=== PATIENT | male | born 1960 | race Caucasian/White ===

== ENCOUNTER → 2016-08-06 | Day surgery (SDC) | payer BC ==
[~2016-08-06] VITALS: Ht 182.9 cm; Wt 85.3 kg
[~2016-08-06] MED LIST: BUPIVACAINE/EPIN 0.25% 30 ML VIAL As Ordered ONE; BUPIVACAINE/EPIN 0.25% 30 ML VIAL XX ONE; GLYCOPYRROLATE INJ 0.2 MG/ML 2 ML VIAL As Ordered ONE; KETOROLAC 60 MG/2 ML VIAL (J1885) As Ordered ONE; LABETALOL HCL 100 MG/20 ML VIAL As Ordered ONE; LIDOCAINE 2% INJ 100 MG/5 ML SDV (FOR ANES.) As Ordered ONE; LR 1,000 ML IV SCH; MEPERIDINE INJ 25 MG/ML VIAL (J2175) As Ordered ONE; MEPERIDINE INJ 25 MG/ML VIAL (J2175) IV PRN; MIDAZOLAM INJ 2 MG/2 ML VIAL (J2250) As Ordered ONE; NEOSTIGMINE 1MG/ML 5 ML SYRINGE (J2710) As Ordered ONE; NORCO, ANEXSIA 5/325MG TABLET (HYDROcodone/ACETAMINOPHEN) PO PRN; ONDANSETRON 4MG/2ML VIAL (J2405) As Ordered ONE; ONDANSETRON 4MG/2ML VIAL (J2405) IV PRN; PERCOCET 5MG/325MG TAB PO PRN; PROPOFOL 200 MG/20 ML VIAL As Ordered ONE; ROCURONIUM BROMIDE 50 MG/5 ML VIAL As Ordered ONE; SUGAMMADEX SODIUM 500 MG/5 ML VIAL (BRIDION) As Ordered ONE; dexameTHASONE 4 MG/ML 1ML VIAL (J1100) As Ordered ONE; fentaNYL 100 MCG/2 ML INJECTION (J3010) As Ordered ONE; fentaNYL 100 MCG/2 ML INJECTION (J3010) IV PRN
[2016-08-06] MEDS: LABETALOL HCL 100 MG/20 ML VIAL IV PRN ×2 (09:58→10:17)
[2016-08-06 10:17] VITALS: BP 170/91
[2016-08-06 11:30] VITALS: BP 156/80
--- NOTE | 2016-08-06 14:09 | RO ---
DATE OF PROCEDURE: 08/06/2016 PREOPERATIVE DIAGNOSIS: Left inguinal hernia. POSTOPERATIVE DIAGNOSIS: Bilateral inguinal hernia. PROCEDURE: Laparoscopic bilateral inguinal hernia repair. SURGEON: Dr. Jonah Aponte CHANNEL OPENER OUTSOLES: Dr. Rhodes ANESTHESIA: General: ESTIMATED BLOOD LOSS: 15. COMPLICATIONS: None. INDICATIONS FOR PROCEDURE: The patient is a 55-year-old male with a left groin bulge and pain consistent with a left inguinal hernia and also a possible small right on exam. Recommendation was to proceed with laparoscopic left and possible bilateral inguinal hernia repair. The risks and benefits of the procedure, not limited to, but including bleeding, infection, hernia formation, damage to surrounding structures, need for further surgery and hernia recurrence were discussed in detail with the patient. Informed consent was obtained and the procedure was planned. PROCEDURE: The patient was brought back to operating room three after sufficient sedation and the abdomen was sterilely prepped and draped. Next, a time out was done to confirm proper patient and proper procedure. Next, a 2 cm incision was made at the umbilicus. Incision was carried down to the level of the fascia. The fascia was opened just to the right of midline. The preperitoneal space was entered and a balloon dissector was placed. The preperitoneal space was dissected with the balloon. The balloon was then removed and replaced with a 10 mm balloon port. The preperitoneal space was insufflated with 15 mmHg. Two 5 mm incisions were made in the midline in between the umbilicus and pubic symphysis and two 5 mm balloon ports were placed. Next, using a combination of blunt dissection and sharp dissection, the left inguinal canal was carefully identified. The anatomy was abnormal so this was very difficult; however, eventually it was identified. The hernia sac was then able to be dissected free from the cord structures both posteriorly and laterally. Once this was completed, the same process was done on the right side where there was a very much smaller hernia there. Once these were reduced, Bard 3DMax large meshes were placed, first on the left side. The mesh was placed inside the preperitoneal space, unrolled laterally, and tacked to the midline pubic symphysis using a ProTacker. The same process was done on the right. Once both meshes were held in place, the meshes were held down flat while the preperitoneal insufflation was released. The ports were then removed. The fascia at the umbilical port site was closed with an #0 Vicryl mgvaln-ca-snnlk suture. The abdomen was then cleaned and dried. Skin incisions were closed with #4-0 Vicryl subcuticular sutures. Steri-Strips, 4x4 and tape were applied thus ending the procedure.
== END | disposition home or self-care (01) ==
LOC: M SDC 05:50
PROVIDERS: ATTEND Surgery
DX: K40.20 Bilateral inguinal hernia, without obstruction or gangrene, not specified as recurrent (principal)
CPT/HCPCS: 49650; C1781; J0690; J1100; J1885; J2175; J2250; J2405; J3010

== ENCOUNTER → 2016-10-17 | Outpatient (CLI) | payer BC ==
[~2016-10-17] MED LIST changes: -BUPIVACAINE/EPIN 0.25% 30 ML VIAL As Ordered ONE; -BUPIVACAINE/EPIN 0.25% 30 ML VIAL XX ONE; +GASTROGRAFIN SOLUTION 30ML (Q9963) As Ordered ONE; -GLYCOPYRROLATE INJ 0.2 MG/ML 2 ML VIAL As Ordered ONE; +ISOVUE-370 76% 100ML VIAL (Q9967) As Ordered ONE; -KETOROLAC 60 MG/2 ML VIAL (J1885) As Ordered ONE; -LABETALOL HCL 100 MG/20 ML VIAL As Ordered ONE; -LIDOCAINE 2% INJ 100 MG/5 ML SDV (FOR ANES.) As Ordered ONE; -LR 1,000 ML IV SCH; -MEPERIDINE INJ 25 MG/ML VIAL (J2175) As Ordered ONE; -MEPERIDINE INJ 25 MG/ML VIAL (J2175) IV PRN; -MIDAZOLAM INJ 2 MG/2 ML VIAL (J2250) As Ordered ONE; -NEOSTIGMINE 1MG/ML 5 ML SYRINGE (J2710) As Ordered ONE; -NORCO, ANEXSIA 5/325MG TABLET (HYDROcodone/ACETAMINOPHEN) PO PRN; -ONDANSETRON 4MG/2ML VIAL (J2405) As Ordered ONE; -ONDANSETRON 4MG/2ML VIAL (J2405) IV PRN; -PERCOCET 5MG/325MG TAB PO PRN; -PROPOFOL 200 MG/20 ML VIAL As Ordered ONE; -ROCURONIUM BROMIDE 50 MG/5 ML VIAL As Ordered ONE; -SUGAMMADEX SODIUM 500 MG/5 ML VIAL (BRIDION) As Ordered ONE; -dexameTHASONE 4 MG/ML 1ML VIAL (J1100) As Ordered ONE; -fentaNYL 100 MCG/2 ML INJECTION (J3010) As Ordered ONE; -fentaNYL 100 MCG/2 ML INJECTION (J3010) IV PRN
--- NOTE | 2016-10-18 07:24 | REP ---
CT ABDOMEN AND PELVIS WITHOUT AND WITH CONTRAST: 10/17/2016. Clinical history: Bilateral inguinal hernia, status post repair with persistent/recurrent pain. Evaluate for hernia recurrence. Technique: Oral Gastrografin mixture 10 ml in 290 ml of flavored water per our bowel contrast protocol given for two doses. Scanning through the abdomen performed followed by bolus of 100 ml Isovue 370 and scanning through the abdomen and pelvis with coronal and sagittal reconstructions. Delayed images through the liver were obtained. Findings: CT abdomen: Lung bases are clear. Heart size not grossly enlarged. Left atrium borderline. There is no pericardial thickening or effusion and no hiatal hernia. I see no hepatosplenomegaly, focal hepatic or splenic lesion nor intrahepatic biliary dilatation. Gallbladder with a few small dependent stones. Some sludge. Pancreas unremarkable. Adrenal glands are normal. The kidneys show function without obstruction. There are some parapelvic cysts in the lower pole on the left. No hydronephrosis, hydroureter or ureteral stone on either side. The aorta is without aneurysm. There is no periaortic or other retroperitoneal lymphadenopathy. Small bowel loops and colon in the abdomen proper were all unremarkable. There is a retrocecal appendix which is unremarkable. I see no ventral hernia in the abdomen or umbilical hernia. Lung window review of all CT slices abdomen pelvis shows no sign of perforation or free air. Bone windows show lumbar and lower thoracic spine with some minor degenerative changes, but no spondylolysis or spondylolisthesis. Visualized ribs intact. CT pelvis: The bony hips, pelvis and SI joints show some minor degenerative changes without destructive lesion or fractures. Bladder shows no wall thickening, mass or stone. There are postoperative changes in the deep pelvis from prior hernia repair. There is omental fat distending the left inguinal canal, but not the right. Small hydroceles are suggested in the upper aspect of the scrotum surrounding the upper poles of the testes. No bowel herniation recurs. I do not see any definite tethering or obstruction of the bowel with stool and gas scattered throughout the distal left colon, sigmoid and rectum, but no colitis or diverticulitis. No midline ventral hernia. Impression: 1. Status post hernia surgery with evidence of distension of the left inguinal canal with omental fat but no bowel hernia recurrence, obstruction or tethering of bowel, abnormal fluid collections or masses. 2. No diverticulitis, colitis, stricture or mass. 3. A few small dependent calcifications in the gallbladder with some sludge. No other acute finding. Minor degenerative changes. Signed by Tio Smart MD 10/18/2016 10:33 A
== END ==
LOC: M RAD 15:28
PROVIDERS: ATTEND Surgery
DX: K40.20 Bilateral inguinal hernia, without obstruction or gangrene, not specified as recurrent (principal)

== ENCOUNTER → 2017-03-09 | Outpatient (REF) | payer BC ==
[~2017-03-09] MED LIST changes: -GASTROGRAFIN SOLUTION 30ML (Q9963) As Ordered ONE; +HYDR-3363 PO; -ISOVUE-370 76% 100ML VIAL (Q9967) As Ordered ONE; +SENE8.6T PO; +VENL150C43 PO
[2017-03-09 12:23] LABS: TOTAL PROTEIN 6.9 GM/DL (6.4-8.2)
[2017-03-10 12:00] LABS: ALBUMIN 4.37 GM/DL (3.29-5.55); ALBUMIN % 63.4 % (55.8-66.1); GAMMA GLOBULIN % 11.8 % (11.1-18.8)
== END ==
LOC: M LABDRAW1 08:45
PROVIDERS: ATTEND Internal Medicine
DX: R80.9 Proteinuria, unspecified (principal); F41.9 Anxiety disorder, unspecified

== ENCOUNTER → 2017-03-10 | Outpatient (REF) | payer BC | LOC: M LAB REF 12:48 | PROVIDERS: ATTEND Internal Medicine | DX: R80.9 Proteinuria, unspecified (principal); F41.9 Anxiety disorder, unspecified ==

== ENCOUNTER 2017-04-24 11:53 | Outpatient (CLI) | payer BC ==
[~2017-04-24] VITALS: Ht 182.9 cm; Wt 86.2 kg
[2017-04-24] MEDS ORDERED: NS 1,000 ML IV ONE (12:15)
[2017-04-24] MEDS ORDERED: PROPOFOL 200 MG/20 ML VIAL As Ordered ONE (13:37)
[2017-04-24] MEDS ORDERED: LIDOCAINE 2% INJ 100 MG/5 ML SDV (FOR ANES.) As Ordered ONE (13:37)
--- NOTE | 2017-04-24 13:56 | ROOR ---
Patient Name: Kvng Farris Procedure Date: 04/24/2017 1:32 PM Date of : 1960 Age: 56 Room: [facility] Gender: Male Note Status: Finalized Procedure: Colonoscopy Indications: Screening for colorectal malignant neoplasm Providers: Gera MEJIA MD Referring MD: ARSENIO MENON MD Requesting Provider: Medicines: Monitored Anesthesia Care Complications: No immediate complications. Procedure: Pre-Anesthesia Assessment: - The heart rate, respiratory rate, oxygen saturations, blood pressure, adequacy of pulmonary ventilation, and response to care were monitored throughout the procedure. The Colonoscope was introduced through the anus and advanced to the cecum, identified by appendiceal orifice and ileocecal valve. The colonoscopy was performed without difficulty. The patient tolerated the procedure well. The quality of the bowel preparation was good. Findings: The perianal and digital rectal examinations were normal. (EXAM: Complete, PREP:Adequate) Small Internal Hemorrhoids. The entire examined colon appeared normal on direct and retroflexion views. Impression: - (EXAM: Complete, PREP:Adequate) - Small Internal Hemorrhoids. - The entire colon is normal on direct and retroflexion views. - No specimens collected. Recommendation: - Repeat colonoscopy in 10 years for screening purposes. Gera Mejia MD Gera MEJIA MD 04/24/2017 1:55:47 PM This report has been signed electronically. Number of Addenda: 0 Note Initiated On: 04/24/2017 1:32 PM Estimated Blood Loss: Estimated blood loss: none.
[2017-04-24 14:34] VITALS: BP 131/91
== END 2017-04-24 14:36 | disposition home or self-care (01) ==
LOC: M OPP 11:53
PROVIDERS: ATTEND Internal Medicine Gastroenterology
DX: Z12.11 Encounter for screening for malignant neoplasm of colon (principal); K64.8 Other hemorrhoids; F41.9 Anxiety disorder, unspecified; G47.8 Other sleep disorders; Z79.899 Other long term (current) drug therapy; Z80.51 Family history of malignant neoplasm of kidney

== ENCOUNTER → 2018-10-07 | Outpatient (REF) | payer BC ==
[2018-10-07 14:59] LABS: TOTAL PROTEIN,RANDOM URINE 17.5 MG/DL (0.0-12.0)
[2018-10-07 15:10] LABS: AMORPHOUS SEDIMENT SMALL (NEGATIVE); BACTERIA, URINE AUTO NEGATIVE (NEGATIVE); MUCUS, URINE MODERATE (NEGATIVE); RBC, URINE AUTO 0 /HPF (0-3); SQUAMOUS EPITHELIAL CELL UR AU 0 /HPF (0-6); WBC, URINE AUTO 1 /HPF (0-3)
== END ==
LOC: M LAB REF 13:34
PROVIDERS: ATTEND Internal Medicine Nephrology
DX: R80.9 Proteinuria, unspecified (principal); N18.2 Chronic kidney disease, stage 2 (mild)

== ENCOUNTER → 2018-10-12 | Outpatient (CLI) | payer BC ==
--- NOTE | 2018-10-12 11:26 | REP ---
RENAL AND BLADDER ULTRASOUND: Real-time sonographic evaluation of the kidneys performed. The kidneys are normal in size and echotexture, right kidney measuring 11.7 x 6.8 x 4.9 cm and left kidney 11.7 x 5.3 x 5.7 cm. There is no hydronephrosis bilaterally. There is a cyst in the lower pole of the right kidney 1.5 cm in diameter. There appears to be a small extrarenal pelvis of the right kidney. There is focal pelvocaliectasis in the lower pole of the left kidney. Urinary bladder measures 10.2 x 7.0 x 8.7 cm for a total volume of 406 mL. No mass or calculus is seen. There are bilateral ureteral jets in the urinary bladder with Doppler color evaluation. After voiding, post void residual is 68 mL. This is 17% of the original volume. IMPRESSION: No overt hydronephrosis. Right renal cyst. Mild pelvocaliectasis lower pole left kidney. Postvoid residual in the urinary bladder is 17%. Electronically Signed by Jonah Hurtado MD 10/13/2018 10:07 A
== END ==
LOC: M RAD 08:24
PROVIDERS: ATTEND Internal Medicine Nephrology
DX: R35.1 Nocturia (principal); R80.9 Proteinuria, unspecified; N28.1 Cyst of kidney, acquired

== ENCOUNTER 2019-05-12 07:33 | Day surgery (SDC) | payer BC ==
[~2019-05-12] VITALS: Ht 182.9 cm; Wt 93.9 kg
[~2019-05-12 07:33] MED LIST changes: +ATOR1TAB21 PO; +LOSA25TA14 PO; +LR 1,000 ML IV ONE; -SENE8.6T PO; +SENN1TAB38 PO; +ceFAZolin SOD 2 GM in IV 1 EA IV ONE
[2019-05-12] MEDS ORDERED: BUPIVACAINE/EPIN 0.25% 30 ML VIAL As Ordered ONE (10:11)
[2019-05-12] MEDS ORDERED: SUGAMMADEX SODIUM 500 MG/5 ML VIAL (BRIDION) As Ordered ONE (10:47)
[2019-05-12] MEDS ORDERED: ROCURONIUM BROMIDE 50 MG/5 ML VIAL As Ordered ONE ×2 (10:47→12:10)
[2019-05-12] MEDS ORDERED: ONDANSETRON 4MG/2ML VIAL (J2405) As Ordered ONE (10:47)
[2019-05-12] MEDS ORDERED: PROPOFOL 200 MG/20 ML VIAL As Ordered ONE (10:47)
[2019-05-12] MEDS ORDERED: KETOROLAC 60 MG/2 ML VIAL (J1885) As Ordered ONE (10:47)
[2019-05-12] MEDS ORDERED: dexameTHASONE 4 MG/ML 1ML VIAL (J1100) As Ordered ONE (10:47)
[2019-05-12] MEDS ORDERED: ACETAMINOPHEN 1000MG 100ML IV BTL (OFIRMEV) (J0131 PER 10MG) As Ordered ONE (10:47)
[2019-05-12] MEDS ORDERED: MIDAZOLAM INJ 2 MG/2 ML VIAL (J2250) As Ordered ONE (10:47)
[2019-05-12] MEDS ORDERED: LIDOCAINE 2% INJ 100 MG/5 ML SDV (FOR ANES.) As Ordered ONE (10:47)
[2019-05-12] MEDS ORDERED: fentaNYL 250 MCG/5 ML INJECTION (J3010) As Ordered ONE (10:47)
[2019-05-12] MEDS ORDERED: METOCLOPRAMIDE INJ 10MG/2ML VIAL (J2765) As Ordered ONE (10:47)
[2019-05-12] MEDS ORDERED: LR 1,000 ML IV SCH (13:45)
[2019-05-12] MEDS ORDERED: fentaNYL 100 MCG/2 ML INJECTION (J3010) IV PRN (13:45)
[2019-05-12] MEDS ORDERED: ONDANSETRON 4MG/2ML VIAL (J2405) IV PRN (13:45)
[2019-05-12] MEDS ORDERED: HYDROMORPHONE HCL 0.5 MG/ 0.5 ML SYRINGE (J1170 PER 1) IV PRN (13:45)
[2019-05-12] MEDS ORDERED: PERCOCET 5MG/325MG TAB PO PRN (13:45)
[2019-05-12] MEDS ORDERED: NORCO, ANEXSIA 5/325MG TABLET (HYDROcodone/ACETAMINOPHEN) PO PRN (14:46)
--- NOTE | 2019-05-12 15:07 | REP ---
HISTORY: Assess for foreign body. FINDINGS: KUB shows the intestinal gas pattern to be nonspecific. The organ silhouettes insofar as delineated are unremarkable. There is no evidence of free intraperitoneal air. In the pelvis, there are four coil shaped radiodensities, the etiology of which need to be correlated clinically. There is no linear or curvilinear metallic radiodensity that would be considered consistent with any form of needle. IMPRESSION: Nonspecific. Electronically Signed by Matthew Ching DO 05/12/2019 04:57 P
[2019-05-12 15:19] VITALS: BP 135/81
--- NOTE | 2019-05-12 22:31 | RO ---
DATE OF PROCEDURE: 05/12/2019 PREOPERATIVE DIAGNOSIS: Recurrent incarcerated left inguinal hernia and umbilical hernia. POSTOPERATIVE DIAGNOSIS: Recurrent incarcerated left inguinal hernia and umbilical hernia. PROCEDURE: Robotic repair of incarcerated recurrent left inguinal hernia and umbilical hernia. SURGEON: Dr. Jonah Aponte GRADES 1 THROUGH 6 TEACHER: Jessica Licea ANESTHESIA: General. ESTIMATED BLOOD LOSS: 5 mL. COMPLICATIONS: None. INDICATIONS FOR PROCEDURE: The patient is a 58-year-old male who presents with a large bulge in the left groin, as well some pain in his umbilicus. Recommendation was to proceed with robotic repair of his recurrent left incarcerated inguinal hernia as well as the umbilical hernia. Risks and benefits of procedure not limited to but including bleeding, infection, hernia recurrence, hernia formation, damage to surrounding structures and need for further surgery were discussed in detail with the patient. Informed consent was obtained and procedure was planned. DESCRIPTION OF PROCEDURE: The patient was brought back to operating room seven and after sufficient sedation, the abdomen was sterilely prepped and draped. Next, a time-out was done to confirm proper patient, proper procedure. Following that, 8 mm incision made left upper quadrant, Veress needle inserted and the abdomen was insufflated to 15 mmHg. Next, the Veress needle removed and an 8 mm robotic port was used to gain access to the abdomen. Once the abdomen was entered, two more 8 mm ports were placed, one subxiphoid and one in the right upper quadrant. Starting in the left groin, the entire sigmoid colon was down into the left groin. This was carefully reduced using combination of retraction intra-abdominally as well as pressure on the outside of the abdomen. Once it was completely reduced and a curved incision was made in the preperitoneal space, the hernia sac was dissected free from the cord structures using a combination of blunt and sharp dissection. His previous mesh was identified; it had all retracted medially. Once everything was reduced, Bard 3DMax Light medium mesh was placed in the preperitoneal space, sutured medially to the anterior abdominal wall as well as to the old mesh and then placed laterally. Next, the peritoneum was closed with a #2-0 V-Loc suture encompassing some of the large cord lipoma within it to help keep it from retracting back inside of the hernia sac. Once this was all completed, next at the umbilicus, a horizontal incision about 5 cm in length was made. Preperitoneal space was dissected free using a combination of blunt and sharp dissection. Once that was completed, the hernia defect was closed with an #0 Stratafix suture. Once that was completed, a 3 x 3 square of ProGrip suture was cut and placed inside of the preperitoneal pocket. The peritoneum was then closed with a #2-0 V-Loc suture, thus ending that portion of the procedure. The ports were then removed, the abdomen was then desufflated. Skin incisions were closed with #4-0 Vicryl subcuticular sutures. The abdomen was cleaned and dried. Steri-Strips, 4x4, and tape were applied thus ending procedure.
== END 2019-05-12 15:19 | disposition home or self-care (01) ==
LOC: M SDC 07:33
PROVIDERS: ATTEND Surgery
DX: K40.31 Unilateral inguinal hernia, with obstruction, without gangrene, recurrent (principal); K42.9 Umbilical hernia without obstruction or gangrene; I10 Essential (primary) hypertension; F41.9 Anxiety disorder, unspecified; E78.00 Pure hypercholesterolemia, unspecified
CPT/HCPCS: 49651; 49652; 74018; C1781; J0131; J0690; J1100; J1885; J2250; J2405; J2765; J3010

== ENCOUNTER → 2021-06-12 | Outpatient (CLI) | payer BC ==
[~2021-06-12] MED LIST changes: +ACET-897 PO; +COLA100C5 PO; -LR 1,000 ML IV ONE; +META28.32 PO; -ceFAZolin SOD 2 GM in IV 1 EA IV ONE
--- NOTE | 2021-06-12 14:50 | REP ---
INDICATION: ABDOMINAL PAIN. COMPARISON: 05/12/2019 TECHNIQUE: Four views FINDINGS: Supine and upright views of the abdomen show the intestinal gas pattern to be nonspecific. Gas and stool is seen throughout the colon within the rectosigmoid region. The organ silhouettes insofar as delineated appear unremarkable. No abdominal calcific densities are seen within the abdomen or pelvis. There is a moderate to large amount of stool seen in the colon. The accompanying single frontal view of the chest shows no free subdiaphragmatic air, cardiomegaly, infiltrates or effusions. IMPRESSION: Nonspecific intestinal gas pattern. <Electronically signed by Matthew Ching > 06/12/21 [id number]
== END ==
LOC: M WUC 14:09
PROVIDERS: ATTEND Internal Medicine
DX: R10.9 Unspecified abdominal pain (principal)

== ENCOUNTER 2021-06-14 09:34 | Emergency (ER) | payer BC ==
[~2021-06-14] VITALS: Ht 182.9 cm; Wt 92.8 kg
[~2021-06-14 09:34] MED LIST changes: -ACET-897 PO; -COLA100C5 PO; -META28.32 PO
[2021-06-14] MEDS ORDERED: META28.32 PO (09:42)
[2021-06-14] MEDS ORDERED: COLA100C5 PO (09:42)
--- OUTSIDE RECORDS SUMMARY | 2021-06-14 09:46 | CCD | Continuity of Care Document ---
Author Author Kvng VITAL M.D. Organization Unknown Address [address] [address] Phone [phone] Problems Active Problems Provider Date Proteinuria Mike Riggs [facility] Onset: 10/31/2016 Hyperlipidemia Horacio Vital M.D. Onset: 0 Anxiety state Horacio Vital M.D. Onset: 0 Social History Type Date Description Comments Sex Unknown ETOH Use Denies alcohol use Tobacco Use Start: Unknown Patient has never smoked Recreational Drug Use Denies Drug Use Allergies and adverse reactions Description No Known Drug Allergies Medications Active Medications SIG Qnty Indications Ordering Provide r Date Omeprazole 20mg Capsules DR 1 by mouth every morning 90Horacio Byers M.D. 06/12/20 21 Losartan Potassium 25mg Tablets Take 1 Tablet By Mouth Every Day 90Horacio Danielson M.D . 09/14/2018 Atorvastatin Calcium 20mg Tablets Take 1 Tablet By Mouth AT Bedtime 90tabs Horacio Vital M. D. 03/09/2018 Venlafaxine HCL ER 150mg Caps ER 2 4HR Take 1 Capsule By Mouth Every Day Horacio Nazario M.D. 11/10/2016 Immunizations CPT Code Status Date Vaccine Lot # [id number] Given 04/12/2021 Influenza Virus Vaccine, Quadrivalent, Slit Virus, Im Use 3Y & Up [id number] Vital Signs Date Vital Result Comment 06/12/2021 1:25pm BP Systolic 124 mmHg BP Diastolic 84 mmHg Body Temperature 98.3 F Heart Rate 88 /min Respiratory Rate 18 /min Weight 205.00 lb O2 % BldC Oximetry 97 % 04/12/2021 8:28am BP Systolic 124 mmHg BP Diastolic 80 mmHg Heart Rate 72 /min Respiratory Rate 14 /min Weight 211.00 lb Results Test Acquired Date Facility Test Result H/L Range Note CMP 04/12/2021 [facility] Glu 88 mg/dL 70 - 110 1 BUN 13 mg/dL 8 - 23 Creat 1.1 mg/dL 0.7 - 1.2 BUN/Creatinine Ratio 12.1 Calc Na 139 mmol/L 136 - 145 K 4.6 mmol/L 3.5 - 5.1 CL 102.3 mmol/L 98.0 - 107.0 Co2 24.2 mmol/L 22.0 - 29.0 CA 9.3 mg/dL 8.6 - 10.2 TP 6.8 g/dL 6.6 - 8.7 Alb 4.8 g/dL 3.5 - 5.2 A/G Ratio 2.5 Calc Globulin 2.0 Calc Alp 87.6 U/L 40 - 129 Alt (SGPT) 20 U/L 0 - 41 Ast (Sgot) 18 U/L 0 - 40 Tbili 0.51 mg/dL 0.0 - 1.2 Osmolality-Calculated 276.9 Calc Anion Gap 17.1 mmol/L eGFR 85 # Calc 2 eGFR Non-Afr. Kenyan 74 # Calc 3 Lipid Panel 04/12/2021 [facility] Chol 153 mg/dL 0 - 200 Trig 116 mg/dL 35 - 200 HDL 48 mg/dL 35 - 55 LDL_C 82 Calc 75 - 129 Cho/HDL Ratio 3.2 Calc 1 CHRONIC KIDNEY DISEASE STAGI NG PER NKF: MALE GFR INTERPRETATION: 20-49 YRS: >60 mL/min Normal 50-59 YRS: >56 mL/min Normal 60-69 YRS: >49 mL/min Normal 70-79 YRS: >42 mL/min Normal 80 and above >35 mL/min Normal FEMALE GRF INTERPRETATION: 20-39 YRS: >60 mL/min Normal 40-49 YRS: >58 mL/min Normal 50-59 YRS: >51 mL/min Normal 60-69 YRS: >45 mL/min Normal 70-79 YRS: >39 mL/min Normal 80 and above >32 mL/min NormalCLASSIFICATION CHOLESTEROL FOR ADULTS CHILDREN/ADOLESCENTS* DESIRABLE: <200 MG/DL <170 MG/DL BORDER-LINE HIGH RISK: 200-239 MG/DL 170-199 MG/DL HIGH RISK: >240 MG/DL >200 MG/DL CLASS. FOR PRIMARY LDL CHOL PREVENTION: LDL CHOL-CHILD/ADOLESCENTS* DESIRABLE: <130 MG/DL <110 MG/DL BORDERLINE-HIGH RISK: 130-159 MG/DL 110-129 MG/DL HIGH RISK: >160 MG/DL >130 MG/DL *CHILDREN AND ADOLESCENTS REPRESENTS INDIVIDUALA AGED 2-19 YEARS EXCLUSIVE. 2 CKD-EPI 3 CKD-EPI Procedures Date Code Description Status 06/12/2021 37827 Office/Outpatient Established Mo d MDM 30-39 Min Completed 04/12/2021 58187 Office/Outpatient Established Mo d MDM 30-39 Min Completed Medical Devices Description No Information Available Encounters Type Date Location Provider Dx Diagnosis Office Visit 06/12/2021 1:30p [place] [facility] Horacio Vital M. D. R10.9 Unspecified abdominal pain Office Visit 04/12/2021 8:30a [place] [facility] Horacio Vital M. D. R74.01 Elevation of levels of liver transaminase levels F41.9 Anxiety disorder, unspecifie d E78.5 Hyperlipidemia, unspecified R80.9 Proteinuria, unspecified Z23 Encounter for immunization Assessments Date Code Description Provider 06/12/2021 R10.9 Unspecified abdominal pain Horacio Monte M.D. 04/12/2021 R74.01 Elevation of levels of liver tra nsaminase levels Horacio Vital M.D. 04/12/2021 F41.9 Anxiety disorder, unspecified Mi Horacio montano M.D. 04/12/2021 E78.5 Hyperlipidemia, unspecified Mitc Horacio allen M.D. 04/12/2021 R80.9 Proteinuria, unspecified Horacio Perez M.D. 04/12/2021 Z23 Encounter for immunization Horacio Monte M.D. Plan of Treatment Future Appointment(s):* 10/16/2021 8:30 am - Horacio Vital M.D. at [facility] Functional Status Description No Information Available Mental Status Description No Information Available Referrals Description No Information Available
--- OUTSIDE RECORDS SUMMARY | 2021-06-14 09:46 | CCD | Continuity of Care Document ---
Author Author Kvng VITAL M.D. Organization Unknown Address [address] [address] Phone [phone] Problems Active Problems Provider Date Proteinuria Mike Riggs [facility] Onset: 10/31/2016 Hyperlipidemia Horacio Vital M.D. Onset: 0 Anxiety state Horacio Vital M.D. Onset: 0 Social History Type Date Description Comments Sex Unknown ETOH Use Denies alcohol use Tobacco Use Start: Unknown Patient has never smoked Recreational Drug Use Denies Drug Use Allergies, Adverse Reactions, Alerts Description No Known Drug Allergies Medications Active Medications SIG Qnty Indications Ordering Provide r Date Losartan Potassium 25mg Tablets Take 1 Tablet By Mouth Every Day 90tabs Horacio Vital M.D . 09/14/2018 Atorvastatin Calcium 20mg Tablets Take 1 Tablet By Mouth AT Bedtime 90tabs Horacio Vital M. D. 03/09/2018 Venlafaxine HCL ER 150mg Caps ER 2 4HR Take 1 Capsule By Mouth Every Day 90Horacio Byers M.D. 11/10/2016 History Medications Keflex 500mg Capsules 1 by mouth three times a day 30capHoracio Vicente M.D. 10/17/19 - 04/12/2021 Immunizations CPT Code Status Date Vaccine Lot # [id number] Given 04/12/2021 Influenza Virus Vaccine, Quadrivalent, Slit Virus, Im Use 3Y & Up [id number] Vital Signs Date Vital Result Comment 04/12/2021 8:28am BP Systolic 124 mmHg BP Diastolic 80 mmHg Heart Rate 72 /min Respiratory Rate 14 /min Weight 211.00 lb 10/16/2020 1:46pm BP Systolic 128 mmHg BP Diastolic 82 mmHg Body Temperature 98.5 F Heart Rate 84 /min Respiratory Rate 16 /min Height 72 inches 6'0" Weight 219.00 lb Norris Body Weight 178 lb BMI (Body Mass Index) 29.7 kg/m2 O2 % BldC Oximetry 97 % Results Test Acquired Date Facility Test Result [...] eGFR 85 # Calc 2 eGFR Non-Afr. [place] 74 # Calc 3 Lipid Panel 04/12/2021 [...] 3 CKD-EPI Procedures Date Code Description Status 04/12/2021 27623 Office/Outpatient Established Mo d MDM 30-39 Min Completed 10/16/2020 23664 Office/Outpatient Established Lo w MDM 20-29 Min Completed Medical Devices Description No Information Available Encounters Type Date Location Provider Dx Diagnosis Office Visit 04/12/2021 8:30a [place] [facility] Horacio Vital M. D. R74.01 Elevation of levels of liver transaminase levels F41.9 Anxiety disorder, unspecifie d E78.5 Hyperlipidemia, unspecified R80.9 Proteinuria, unspecified Office Visit 10/16/2020 1:30p [facility] Horacio Vital M. D. L03.221 Cellulitis of neck Assessments Date Code Description Provider 04/12/2021 R74.01 Elevation of levels of liver tra nsaminase levels Horacio Vital M.D. 04/12/2021 F41.9 Anxiety disorder, unspecified Mi Horacio montano M.D. 04/12/2021 E78.5 Hyperlipidemia, unspecified Mitc Horacio allen M.D. 04/12/2021 R80.9 Proteinuria, unspecified KurtisHoracio abbott M.D. 10/16/2020 L03.221 Cellulitis of neck Anthony Vital M.D. Plan of Treatment Future Appointment(s):* 10/16/2021 8:30 am - Horacio Vital M.D. at [facility] Functional Status Description No Information Available Mental Status Description No Information Available Referrals Description No Information Available
--- OUTSIDE RECORDS SUMMARY | 2021-06-14 09:46 | CCD | Continuity of Care Document ---
Author Author Kvng VITAL M.D. Organization Unknown Address [address] [address] Phone [phone] Problems Active Problems Provider Date Proteinuria Mike Riggs [facility] Onset: 10/31/2016 Hyperlipidemia Horacio Vital M.D. [...] CPT Code Status Date Vaccine Lot # [id number] Given 04/12/2021 Influenza Virus Vaccine, Quadrivalent, Slit Virus, Im Use 3Y & Up [id number] Vital Signs Date Vital Result Comment 04/12/2021 8:28am BP Systolic 124 mmHg BP Diastolic 80 mmHg Heart Rate 72 /min Respiratory Rate 14 /min Weight 211.00 lb 10/16/2020 1:46pm BP Systolic 128 mmHg BP Diastolic 82 mmHg Body Temperature 98.5 F Heart Rate 84 /min Respiratory Rate 16 /min Height 72 inches 6'0" Weight 219.00 lb [place] Body Weight 178 lb BMI (Body Mass Index) 29.7 kg/m2 O2 % BldC Oximetry 97 % Results Test Acquired Date Facility Test Result H/L Range Note Lipid Panel 04/12/2021 [facility] Chol 153 mg/dL 0 - 200 1 Trig 116 mg/dL 35 - 200 HDL [...] ADOLESCENTS REPRESENTS INDIVIDUALA AGED 2-19 YEARS EXCLUSIVE. Procedures Date Code Description Status 04/12/2021 24319 Office/Outpatient Established Mo d MDM 30-39 Min Completed 10/16/2020 02417 Office/Outpatient Established Lo w MDM 20-29 Min Completed Medical Devices Description No Information Available Encounters Type Date Location Provider Dx Diagnosis Office Visit 04/12/2021 8:30a [place] [facility] Horacio Vital M. D. R74.01 Elevation of levels of liver transaminase levels F41.9 Anxiety disorder, unspecifie d E78.5 Hyperlipidemia, unspecified R80.9 Proteinuria, unspecified Office Visit 10/16/2020 1:30p [facility] Horacio Vital M. D. L03.221 Cellulitis of neck Assessments Date Code Description Provider 04/12/2021 R74.01 Elevation of levels of liver tra nsaminase levels Horacio Vital M.D. 04/12/2021 F41.9 Anxiety disorder, unspecified Mi Horacio montano M.D. 04/12/2021 E78.5 Hyperlipidemia, unspecified Mitc Horacio allen M.D. 04/12/2021 R80.9 Proteinuria, unspecified Kurtis Horacio brooks M.D. 10/16/2020 L03.221 Cellulitis of neck Anthony Vital M.D. Plan of Treatment Future Appointment(s):* 10/16/2021 8:30 am - Horacio Vital M.D. at [facility] Functional Status Description No Information Available Mental Status Description No Information Available Referrals Description No Information Available
--- OUTSIDE RECORDS SUMMARY | 2021-06-14 09:46 | CCD | Continuity of Care Document ---
Author Author Kvng VITAL M.D. Organization Unknown Address [address] [address] Phone [phone] Problems Active Problems Provider Date Proteinuria Mike Riggs [facility] Onset: 10/31/2016 Hyperlipidemia Horacio Vital M.D. [...] 1 Capsule By Mouth Every Day 90Horacio yBers M.D. 11/10/2016 History Medications Keflex 500mg Capsules 1 by mouth three times a day 30capHoracio Vicente M.D. 10/17/19 - 04/12/2021 Immunizations CPT Code Status Date Vaccine Lot # [id number] Given 04/12/2021 Influenza Virus Vaccine, Quadrivalent, Slit Virus, Im Use 3Y & Up [id number] Vital Signs Date Vital Result Comment 04/12/2021 8:28am BP Systolic 124 mmHg BP Diastolic 80 mmHg Heart Rate 72 /min Respiratory Rate 14 /min Weight 211.00 lb 10/16/2020 1:46pm BP Systolic 128 mmHg BP Diastolic 82 mmHg Body Temperature 98.5 F Heart Rate 84 /min Respiratory Rate 16 /min Height 72 inches 6'0" Weight 219.00 lb [place] Body Weight 178 lb BMI (Body Mass [...] eGFR 85 # Calc 2 eGFR Non-Afr. [place] 74 # Calc 3 Lipid Panel 04/12/2021 [...] CKD-EPI Procedures Date Code Description Status 04/12/2021 13640 Office/Outpatient Established Mo d MDM 30-39 Min Completed 10/16/2020 09204 Office/Outpatient Established Lo w MDM 20-29 Min Completed Medical Devices Description No Information Available Encounters Type Date Location Provider Dx Diagnosis Office Visit 04/12/2021 8:30a [facility] Horacio Vital M. D. R74.01 Elevation of levels of liver transaminase levels F41.9 Anxiety disorder, unspecifie d E78.5 Hyperlipidemia, unspecified R80.9 Proteinuria, unspecified Z23 Encounter for immunization Office Visit 10/16/2020 1:30p [facility] Horacio Vital M. D. L03.221 Cellulitis of neck Assessments Date Code Description Provider 04/12/2021 R74.01 Elevation of levels of liver tra nsaminase levels Horacio Vital M.D. 04/12/2021 F41.9 Anxiety disorder, unspecified [place] Horacio montano M.D. 04/12/2021 E78.5 Hyperlipidemia, unspecified [facility] Horacio allen M.D. 04/12/2021 R80.9 Proteinuria, unspecified Horacio Perez M.D. 04/12/2021 Z23 Encounter for immunization Horacio Monte M.D. 10/16/2020 L03.221 Cellulitis of neck Anthony Vital M.D. Plan of Treatment Future Appointment(s):* 10/16/2021 8:30 am - Horacio Vital M.D. at [facility] Functional Status Description No Information Available Mental Status Description No Information Available Referrals Description No Information Available
--- OUTSIDE RECORDS SUMMARY | 2021-06-14 09:47 | CCD ---
Author Author [facility] Organization [facility] Address Unknown Phone Unavailable Care Team Providers Care Manager Study Name Role Phone Ryan MENON MD Unavailable Unavailable Ryan MENON MD Unavailable Unavailable Ryan MENON MD Unavailable Unavailable Ryan MENON MD Unavailable Unavailable Ryan MENON MD Unavailable Unavailable Ryan MENON MD Unavailable Unavailable Ryan MENON MD Unavailable Unavailable Ryan MENON MD Unavailable Unavailable Ryan MENON MD Unavailable Unavailable Ryan MENON MD Unavailable Unavailable Ryan MENON MD Unavailable Unavailable Ryan MENON MD Unavailable Unavailable Ryan MENON MD Unavailable Unavailable Ryan MENON MD Unavailable Unavailable Ryan MENON MD Unavailable Unavailable Ryan MENON MD Unavailable Unavailable Ryan MENON MD Unavailable Unavailable Ryan MENON MD Unavailable Unavailable Ryan MENON MD Unavailable Unavailable Ryan MENON MD Unavailable Unavailable Ryan MENON MD Unavailable Unavailable Ryan MENON MD Unavailable Unavailable Ryan MEONN MD Unavailable Unavailable Ryan MENON MD Unavailable Unavailable Ryan MENON MD Unavailable Unavailable Ryan MENON MD Unavailable Unavailable Ryan MENON MD Unavailable Unavailable Ryan MENON MD Unavailable Unavailable Ryan MENON MD Unavailable Unavailable Ryan MENON MD Unavailable Unavailable Ryan MENON MD Unavailable Unavailable Ryan MENON MD Unavailable Unavailable Ryan MENON MD Unavailable Unavailable Ryan MENON MD Unavailable Unavailable Ryan MENON MD Unavailable Unavailable Ryan MENON MD Unavailable Unavailable Ryan MENON MD Unavailable Unavailable Ryan MENON MD Unavailable Unavailable SINAN, H ARSENIO MD Unavailable Unavailable SINAN, H ARSENIO MD Unavailable Unavailable SINAN, H ARSENIO MD Unavailable Unavailable SINAN, H ARSENIO MD Unavailable Unavailable SINAN, H ARSENIO MD Unavailable Unavailable SINAN, H ARSENIO MD Unavailable Unavailable SINAN, H ARSENIO MD Unavailable Unavailable SINAN, H ARSENIO MD Unavailable Unavailable SINAN, H ARSENIO MD Unavailable Unavailable SINAN, H ARSENIO MD Unavailable Unavailable SINAN, H ARSENIO MD Unavailable Unavailable SINAN, H ARSENIO MD Unavailable Unavailable SINAN, H ARSENIO MD Unavailable Unavailable SINAN, H ARSENIO MD Unavailable Unavailable SINAN, H ARSENIO MD Unavailable Unavailable SINAN, H ARSENIO MD Unavailable Unavailable SINAN, H ARSENIO MD Unavailable Unavailable SINAN, H ARSENIO MD Unavailable Unavailable SINAN, H ARSENIO MD Unavailable Unavailable SINAN, H ARSENIO MD Unavailable Unavailable SINAN, H ARSENIO MD Unavailable Unavailable SINAN, H ARSENIO MD Unavailable Unavailable SINAN, H ARSENIO MD Unavailable Unavailable SINAN, H ARSENIO MD Unavailable Unavailable SINAN, H ARSENIO MD Unavailable Unavailable SINAN, H ARSENIO MD Unavailable Unavailable SINAN, H ARSENIO MD Unavailable Unavailable SINAN, H ARSENIO MD Unavailable Unavailable SINAN, H ARSENIO MD Unavailable Unavailable SINAN, H ARSENIO MD Unavailable Unavailable SINAN, H ARSENIO MD Unavailable Unavailable SINAN, H ARSENIO MD Unavailable Unavailable SINAN, H ARSENIO MD Unavailable Unavailable SINAN, H ARSENIO MD Unavailable Unavailable SINAN, H ARSENIO MD Unavailable Unavailable SINAN, H ARSENIO MD Unavailable Unavailable SINAN, H ARSENIO MD Unavailable Unavailable SINAN, H ARSENIO MD Unavailable Unavailable SINAN, H ARSENIO MD Unavailable Unavailable SINAN, H ARSENIO MD Unavailable Unavailable RING, K SUNSHINE PA Unavailable Unavailable RING, K SUNSHINE PA Unavailable Unavailable RING, K SUNSHINE PA Unavailable Unavailable RING, K SUNSHINE PA Unavailable Unavailable RING, K SUNSHINE PA Unavailable Unavailable RING, K SUNSHINE PA Unavailable Unavailable RING, K SUNSHINE PA Unavailable Unavailable RING, K SUNSHINE PA Unavailable Unavailable RING, K SUNSHINE PA Unavailable Unavailable RING, K SUNSHINE PA Unavailable Unavailable RING, K SUNSHINE PA Unavailable Unavailable RING, K SUNSHINE PA Unavailable Unavailable RING, K SUNSHINE PA Unavailable Unavailable RING, K SUNSHINE PA Unavailable Unavailable RING, K SUNSHINE PA Unavailable Unavailable RING, K SUNSHINE PA Unavailable Unavailable RING, K SUNSHINE PA Unavailable Unavailable RING, K SUNSHINE PA Unavailable Unavailable RING, K SUNSHINE PA Unavailable Unavailable RING, K SUNSHINE PA Unavailable Unavailable RING, K SUNSHINE PA Unavailable Unavailable RING, K SUNSHINE PA Unavailable Unavailable Re-disclosure Warning The records that you are about to access may contain information from federally-assisted alcohol or drug abuse programs. If such information is present, then the following federally mandated warning applies: This information has been disclosed to you from records protected by federal confidentiality rules (42 CFR part 2). The federal rules prohibit you from making any further disclosure of this information unless further disclosure is expressly permitted by the written consent of the person to whom it pertains or as otherwise permitted by 42 CFR part 2. A general authorization for the release of medical or other information is NOT sufficient for this purpose. The Federal rules restrict any use of the information to criminally investigate or prosecute any alcohol or drug abuse patient.The records that you are about to access may contain highly sensitive health information, the redisclosure of which is protected by Article 27-F of the [facility] Public Health law. If you continue you may have access to information: Regarding HIV / AIDS; Provided by facilities licensed or operated by the [facility] Office of Mental Health; or Provided by the [facility] Office for People With Developmental Disabilities. If such information is present, then the following [facility] mandated warning applies: This information has been disclosed to you from confidential records which are protected by state law. State law prohibits you from making any further disclosure of this information without the specific written consent of the person to whom it pertains, or as otherwise permitted by law. Any unauthorized further disclosure in violation of state law may result in a fine or residential sentence or both. A general authorization for the release of medical or other information is NOT sufficient authorization for further disc losure. Family History Family Member Name Family Member Gender Family Member Status Date o f Status Description Data Source(s) Unknown Unknown Problem [facility] GM Unknown Unknown Problem [facility] ([facility] Unknown Unknown Problem [facility] ([facility]) Encounters Encounter Providers Location Date Indications Data Source(s ) Outpatient Attender: ARSENIO [place] [facility] 12:30:00 PM EST [facility] Out[facility] Attender: A[facility] [place] [facility] 08:30:00 AM EDT [facility] ([facility] Outpatient Attender: SUNSHINE [facility] 01/12/2021 02:20:00 PM EDT [facility] ([facility] Outpatient Attender: ARSENIO MENON MD [place] [facility] 01:30:00 PM EDT [facility] Outpatient Attender: ARSENIO MENON MD [place] [facility] 09:00:00 AM EDT [facility] ([facility] Immunizations Vaccine Date Status Description Data Source(s) New in 2012. IIV4 04/12/2021 08:39:00 AM EDT completed [facility] ([facility] COVID-19 VACCINE Moderna 08/13/2020 12:00:00 AM EST completed [facility] Vaccine Series Complete: YESThis Data wa s Submitted to [facility] Via [employer]. COVID-19 VACCINE Moderna 07/16/2020 12:00:00 AM EST completed [facility] Vaccine Series Complete: NOThis Data was Submitted to [facility] Via [employer]. Medications Medication Brand Name Start Date Product Form Dose Route Admi nistrative Instructions Pharmacy Instructions Status Indications Reaction Description Data Source(s) 20 mg 06/12/2021 12:00:00 AM EST capsule,delayed release (DR/EC) 90 TAKE ONE CAPSULE BY MOUTH EVERY MORNING TAKE ONE CAPSULE BY MOUTH EVERY MORNING SOLD: 06/12/2021 [facility] Omeprazole 20 MG Delayed Release Oral Capsule Omeprazole 06/12/2021 12:00:00 AM EST ORAL active [facility] ([facility] 20 mg 01/12/2021 12:00:00 AM EDT tablet 8 TAKE ONE TABLET BY MOUTH TWICE A DAY FOR 4 DAYS TAKE ONE TABLET BY MOUTH TWICE A DAY FOR 4 DAYS SOLD: 2020 [facility] Prednisone 20 MG Oral Tablet Prednisone 01/12/2021 12:00:00 AM EDT ORAL active [facility] ([facility]) 90 mcg/actuation 01/12/2021 12:00:00 AM EDT HFA aerosol inha ler 8 INHALE 2 PUFFS BY MOUTH EVERY 4 TO 6 HOURS NEEDED INHALE 2 PUFFS BY MOUTH EVERY 4 TO 6 HOURS NEEDED SOLD: 01/12/2021 [facility] 200 ACTUAT Albuterol 0.09 MG/ACTUAT Metered Dose Inhaler [Pr oAir] Proair HFA 01/12/2021 12:00:00 AM EDT ORAL active MED[facility] ([facility]) Amoxicillin 875 MG / Clavulanate 125 MG Oral Tablet 87 5-125 mg AMOXICILLIN/POTASSIUM CLAV 01/12/2021 12:00:00 AM EDT tablet 20 TAKE ONE TABLET BY MOUTH TWICE A DAY FOR 10 DAYS TAKE ONE TABLET BY MOUTH TWICE A DAY FOR 10 DAYS SOLD: 01/12/2021 [facility] Amoxicillin 875 MG / Clavulanate 125 MG Oral Tablet Am oxicillin/Clavulanate Potassium 01/12/2021 12:00:00 AM EDT ORAL active [facility] ([facility]) Cephalexin 500 MG Oral Capsule CEPHALEXIN 10/16/2020 12:00:00 AM EDT capsule 30 TAKE ONE CAPSULE BY MOUTH THREE TIMES A DAY TAKE ONE C APSULE BY MOUTH THREE TIMES A DAY SOLD: 10/16/2020 [facility] Cephalexin 500 MG Oral Capsule [Keflex] Keflex 10/16/2020 12:00:0 0 AM EDT ORAL completed [facility] ([facility] Insurance Providers Payer name Policy type / Coverage type Policy ID Covered constitution party ID Covered constitution party's relationship to barboza Policy Barboza Plan Information [facility] GAGE JASON O [id number] [id number] [id number] [facility] [address] B [id number] O VYS [id number] [facility] Health Maintenance Organization ([facility] [id number] Family Dependent [id number] [facility] Organization ([facility] [id number] 08 [id number] Family Dependent [id number] [facility] Health Maintenance Organization ([facility] [id number] 08 [id number] Family Dependent [id number] [facility] Health Maintenance Organization ([facility] [id number] Family Dependent [id number] BCBS OF GAGE AJSON [phone] [id number] [place]2 [id number] [employer] [facility] Health Maintenance Organization (O) [id number] Family Dependent BCBS [place] PPO 302/307 [id number] [place]2 [id number] BC[employer] [id number] Family Dependent Problems, Conditions, and Diagnoses No Information Surgeries/Procedures Procedure Description Date Indications Data Source(s) OFFICE OUTPATIENT VISIT 25 MINUTES 06/12/2021 12:00:00 AM EST [facility] ([facility] OFFICE OUTPATIENT VISIT 25 MINUTES 04/12/2021 12:00:00 AM EDT [facility] ([facility] OFFICE OUTPATIENT NEW 30 MINUTES 01/12/2021 12:00:00 A M EDT [facility] ([facility] OFFICE OUTPATIENT VISIT 15 MINUTES 10/16/2020 12:00:00 AM EDT [facility] ([facility] Results ID Date Data Source [id number] 04/12/2021 08:40:00 AM EDT [facility] ([facility] Name Value Range Interpretation Code Description Data Sandra rce(s) Supporting Document(s) Trig 116 mg/dL 35-200 [facility] ([facility] CHRONIC KIDNEY DISEASE STAGING PER NKF: MALE GFR INTERPRETATION: 20-49 YRS: [...] DESIRABLE: <130 MG/DL <110 MG/DL BORDERLINE-HIGH RISK: 130- 159 MG/DL 110-129 MG/DL HIGH RISK: >160 MG/DL >130 MG/DL *CHILDREN AND ADOLESCENTS REPRESENTS INDIVIDUALA AGED 2-19 YEARS EXCLUSIVE. Chol 153 mg/dL 0-200 [facility] ([facility] CHRONIC KIDNEY DISEASE STAGING PER NKF: MALE GFR INTERPRETATION: 20-49 YRS: [...] DESIRABLE: <130 MG/DL <110 MG/DL BORDERLINE-HIGH RISK: 130- 159 MG/DL 110-129 MG/DL HIGH RISK: >160 MG/DL >130 MG/DL *CHILDREN AND ADOLESCENTS REPRESENTS INDIVIDUALA AGED 2-19 YEARS EXCLUSIVE. LDL_C 82 Calc 75-129 [facility] ([facility] CHRONIC KIDNEY DISEASE STAGING PER NKF: MALE GFR INTERPRETATION: 20-49 YRS: [...] DESIRABLE: <130 MG/DL <110 MG/DL BORDERLINE-HIGH RISK: 130- 159 MG/DL 110-129 MG/DL HIGH RISK: >160 MG/DL >130 MG/DL *CHILDREN AND ADOLESCENTS REPRESENTS INDIVIDUALA AGED 2-19 YEARS EXCLUSIVE. Cholesterol in HDL [Mass/volume] in Serum or Plasma 48 mg/dL 35-55 [facility] ([facility] CHRONIC KIDNEY DISEASE STAGING PER NKF: MALE GFR INTERPRETATION: 20-49 YRS: [...] DESIRABLE: <130 MG/DL <110 MG/DL BORDERLINE-HIGH RISK: 130- 159 MG/DL 110-129 MG/DL HIGH RISK: >160 MG/DL >130 MG/DL *CHILDREN AND ADOLESCENTS REPRESENTS INDIVIDUALA AGED 2-19 YEARS EXCLUSIVE. Cho/HDL Ratio 3.2 Calc [facility] ([facility] CHRONIC KIDNEY DISEASE STAGING PER NKF: MALE GFR INTERPRETATION: 20-49 YRS: [...] DESIRABLE: <130 MG/DL <110 MG/DL BORDERLINE-HIGH RISK: 130- 159 MG/DL 110-129 MG/DL HIGH RISK: >160 MG/DL >130 MG/DL *CHILDREN AND ADOLESCENTS REPRESENTS INDIVIDUALA AGED 2-19 YEARS EXCLUSIVE. ID Date Data Source [id number] 04/12/2021 08:40:00 AM EDT [facility] ([facility] Name Value Range Interpretation Code Description Data Sandra rce(s) Supporting Document(s) Glu 88 mg/dL 70-110 [facility] CHRONIC KIDNEY DISEASE STAGING PER NKF: MALE GFR INTERPRETATION: 20-49 YRS: [...] DESIRABLE: <130 MG/DL <110 MG/DL BORDERLINE-HIGH RISK: 130- 159 MG/DL 110-129 MG/DL HIGH RISK: >160 MG/DL >130 MG/DL *CHILDREN AND ADOLESCENTS REPRESENTS INDIVIDUALA AGED 2-19 YEARS EXCLUSIVE. BUN 13 mg/dL 8-23 [facility] ([facility] CHRONIC KIDNEY DISEASE STAGING PER NKF: MALE GFR INTERPRETATION: 20-49 YRS: [...] DESIRABLE: <130 MG/DL <110 MG/DL BORDERLINE-HIGH RISK: 130- 159 MG/DL 110-129 MG/DL HIGH RISK: >160 MG/DL >130 MG/DL *CHILDREN AND ADOLESCENTS REPRESENTS INDIVIDUALA AGED 2-19 YEARS EXCLUSIVE. Creat 1.1 mg/dL 0.7-1.2 [facility] ([facility] CHRONIC KIDNEY DISEASE STAGING PER NKF: MALE GFR INTERPRETATION: 20-49 YRS: [...] DESIRABLE: <130 MG/DL <110 MG/DL BORDERLINE-HIGH RISK: 130- 159 MG/DL 110-129 MG/DL HIGH RISK: >160 MG/DL >130 MG/DL *CHILDREN AND ADOLESCENTS REPRESENTS INDIVIDUALA AGED 2-19 YEARS EXCLUSIVE. Na 139 mmol/L 136-145 [facility] CHRONIC KIDNEY DISEASE STAGING PER NKF: MALE GFR INTERPRETATION: 20-49 YRS: [...] DESIRABLE: <130 MG/DL <110 MG/DL BORDERLINE-HIGH RISK: 130- 159 MG/DL 110-129 MG/DL HIGH RISK: >160 MG/DL >130 MG/DL *CHILDREN AND ADOLESCENTS REPRESENTS INDIVIDUALA AGED 2-19 YEARS EXCLUSIVE. BUN/Creatinine Ratio 12.1 Calc [facility] ([facility] CHRONIC KIDNEY DISEASE STAGING PER NKF: MALE GFR INTERPRETATION: 20-49 YRS: [...] DESIRABLE: <130 MG/DL <110 MG/DL BORDERLINE-HIGH RISK: 130- 159 MG/DL 110-129 MG/DL HIGH RISK: >160 MG/DL >130 MG/DL *CHILDREN AND ADOLESCENTS REPRESENTS INDIVIDUALA AGED 2-19 YEARS EXCLUSIVE. K 4.6 mmol/L 3.5-5.1 [facility] CHRONIC KIDNEY DISEASE STAGING PER NKF: MALE GFR INTERPRETATION: 20-49 YRS: [...] DESIRABLE: <130 MG/DL <110 MG/DL BORDERLINE-HIGH RISK: 130- 159 MG/DL 110-129 MG/DL HIGH RISK: >160 MG/DL >130 MG/DL *CHILDREN AND ADOLESCENTS REPRESENTS INDIVIDUALA AGED 2-19 YEARS EXCLUSIVE. Co2 24.2 mmol/L 22.0-29.0 [facility] CHRONIC KIDNEY DISEASE STAGING PER NKF: MALE GFR INTERPRETATION: 20-49 YRS: [...] DESIRABLE: <130 MG/DL <110 MG/DL BORDERLINE-HIGH RISK: 130- 159 MG/DL 110-129 MG/DL HIGH RISK: >160 MG/DL >130 MG/DL *CHILDREN AND ADOLESCENTS REPRESENTS INDIVIDUALA AGED 2-19 YEARS EXCLUSIVE. CL 102.3 mmol/L 98.0-107.0 [facility] ([facility] CHRONIC KIDNEY DISEASE STAGING PER NKF: MALE GFR INTERPRETATION: 20-49 YRS: [...] DESIRABLE: <130 MG/DL <110 MG/DL BORDERLINE-HIGH RISK: 130- 159 MG/DL 110-129 MG/DL HIGH RISK: >160 MG/DL >130 MG/DL *CHILDREN AND ADOLESCENTS REPRESENTS INDIVIDUALA AGED 2-19 YEARS EXCLUSIVE. TP 6.8 g/dL 6.6-8.7 [facility] ([facility] CHRONIC KIDNEY DISEASE STAGING PER NKF: MALE GFR INTERPRETATION: 20-49 YRS: [...] DESIRABLE: <130 MG/DL <110 MG/DL BORDERLINE-HIGH RISK: 130- 159 MG/DL 110-129 MG/DL HIGH RISK: >160 MG/DL >130 MG/DL *CHILDREN AND ADOLESCENTS REPRESENTS INDIVIDUALA AGED 2-19 YEARS EXCLUSIVE. CA 9.3 mg/dL 8.6-10.2 [facility] ([facility] CHRONIC KIDNEY DISEASE STAGING PER NKF: MALE GFR INTERPRETATION: 20-49 YRS: [...] DESIRABLE: <130 MG/DL <110 MG/DL BORDERLINE-HIGH RISK: 130- 159 MG/DL 110-129 MG/DL HIGH RISK: >160 MG/DL >130 MG/DL *CHILDREN AND ADOLESCENTS REPRESENTS INDIVIDUALA AGED 2-19 YEARS EXCLUSIVE. Alb 4.8 g/dL 3.5-5.2 [facility] ([facility] CHRONIC KIDNEY DISEASE STAGING PER NKF: MALE GFR INTERPRETATION: 20-49 YRS: [...] DESIRABLE: <130 MG/DL <110 MG/DL BORDERLINE-HIGH RISK: 130- 159 MG/DL 110-129 MG/DL HIGH RISK: >160 MG/DL >130 MG/DL *CHILDREN AND ADOLESCENTS REPRESENTS INDIVIDUALA AGED 2-19 YEARS EXCLUSIVE. A/G Ratio 2.5 Calc [facility] ([facility] CHRONIC KIDNEY DISEASE STAGING PER NKF: MALE GFR INTERPRETATION: 20-49 YRS: [...] DESIRABLE: <130 MG/DL <110 MG/DL BORDERLINE-HIGH RISK: 130- 159 MG/DL 110-129 MG/DL HIGH RISK: >160 MG/DL >130 MG/DL *CHILDREN AND ADOLESCENTS REPRESENTS INDIVIDUALA AGED 2-19 YEARS EXCLUSIVE. Globulin 2.0 Calc [facility] ([facility] CHRONIC KIDNEY DISEASE STAGING PER NKF: MALE GFR INTERPRETATION: 20-49 YRS: [...] DESIRABLE: <130 MG/DL <110 MG/DL BORDERLINE-HIGH RISK: 130- 159 MG/DL 110-129 MG/DL HIGH RISK: >160 MG/DL >130 MG/DL *CHILDREN AND ADOLESCENTS REPRESENTS INDIVIDUALA AGED 2-19 YEARS EXCLUSIVE. Alp 87.6 U/L 40-129 [facility] ([facility] CHRONIC KIDNEY DISEASE STAGING PER NKF: MALE GFR INTERPRETATION: 20-49 YRS: [...] DESIRABLE: <130 MG/DL <110 MG/DL BORDERLINE-HIGH RISK: 130- 159 MG/DL 110-129 MG/DL HIGH RISK: >160 MG/DL >130 MG/DL *CHILDREN AND ADOLESCENTS REPRESENTS INDIVIDUALA AGED 2-19 YEARS EXCLUSIVE. Alt (SGPT) 20 U/L 0-41 [facility] CHRONIC KIDNEY DISEASE STAGING PER NKF: MALE GFR INTERPRETATION: 20-49 YRS: [...] DESIRABLE: <130 MG/DL <110 MG/DL BORDERLINE-HIGH RISK: 130- 159 MG/DL 110-129 MG/DL HIGH RISK: >160 MG/DL >130 MG/DL *CHILDREN AND ADOLESCENTS REPRESENTS INDIVIDUALA AGED 2-19 YEARS EXCLUSIVE. Ast (Sgot) 18 U/L 0-40 [facility] CHRONIC KIDNEY DISEASE STAGING PER NKF: MALE GFR INTERPRETATION: 20-49 YRS: [...] DESIRABLE: <130 MG/DL <110 MG/DL BORDERLINE-HIGH RISK: 130- 159 MG/DL 110-129 MG/DL HIGH RISK: >160 MG/DL >130 MG/DL *CHILDREN AND ADOLESCENTS REPRESENTS INDIVIDUALA AGED 2-19 YEARS EXCLUSIVE. Tbili 0.51 mg/dL 0.0-1.2 [facility] ([facility] CHRONIC KIDNEY DISEASE STAGING PER NKF: MALE GFR INTERPRETATION: 20-49 YRS: [...] DESIRABLE: <130 MG/DL <110 MG/DL BORDERLINE-HIGH RISK: 130- 159 MG/DL 110-129 MG/DL HIGH RISK: >160 MG/DL >130 MG/DL *CHILDREN AND ADOLESCENTS REPRESENTS INDIVIDUALA AGED 2-19 YEARS EXCLUSIVE. Anion Gap 17.1 mmol/L [facility] ([facility] CHRONIC KIDNEY DISEASE STAGING PER NKF: MALE GFR INTERPRETATION: 20-49 YRS: [...] DESIRABLE: <130 MG/DL <110 MG/DL BORDERLINE-HIGH RISK: 130- 159 MG/DL 110-129 MG/DL HIGH RISK: >160 MG/DL >130 MG/DL *CHILDREN AND ADOLESCENTS REPRESENTS INDIVIDUALA AGED 2-19 YEARS EXCLUSIVE. eGFR 85 # [facility] ( [facility] CHRONIC KIDNEY DISEASE STAGING PER NKF: MALE GFR INTERPRETATION: 20-49 YRS: [...] DESIRABLE: <130 MG/DL <110 MG/DL BORDERLINE-HIGH RISK: 130- 159 MG/DL 110-129 MG/DL HIGH RISK: >160 MG/DL >130 MG/DL *CHILDREN AND ADOLESCENTS REPRESENTS INDIVIDUALA AGED 2-19 YEARS EXCLUSIVE. Osmolality-Calculated 276.9 Calc MED ENT ([facility] CHRONIC KIDNEY DISEASE STAGING PER NKF: MALE GFR INTERPRETATION: 20-49 YRS: [...] DESIRABLE: <130 MG/DL <110 MG/DL BORDERLINE-HIGH RISK: 130- 159 MG/DL 110-129 MG/DL HIGH RISK: >160 MG/DL >130 MG/DL *CHILDREN AND ADOLESCENTS REPRESENTS INDIVIDUALA AGED 2-19 YEARS EXCLUSIVE. eGFR Non-Afr. [place] 74 # [facility] ([facility] CHRONIC KIDNEY DISEASE STAGING PER NKF: MALE GFR INTERPRETATION: 20-49 YRS: [...] DESIRABLE: <130 MG/DL <110 MG/DL BORDERLINE-HIGH RISK: 130- 159 MG/DL 110-129 MG/DL HIGH RISK: >160 MG/DL >130 MG/DL *CHILDREN AND ADOLESCENTS REPRESENTS INDIVIDUALA AGED 2-19 YEARS EXCLUSIVE. ID Date Data Source [id number] 01/12/2021 12:00:00 AM EDT [facility] Name Value Range Interpretation Code Description Data Sandra rce(s) Supporting Document(s) SARS-CoV2 Rapid Antigen Negative [facility] This lab was reported by [facility]. ID Date Data Source [id number] 10/05/2020 09:18:00 AM EDT [facility] ([facility] Name Value Range Interpretation Code Description Data Sandra rce(s) Supporting Document(s) Chol 134 mg/dL 0-200 [facility] CHRONIC KIDNEY DISEASE STAGING PER NKF: MALE GFR INTERPRETATION: 20-49 YRS: [...] DESIRABLE: <130 MG/DL <110 MG/DL BORDERLINE-HIGH RISK: 130- 159 MG/DL 110-129 MG/DL HIGH RISK: >160 MG/DL >130 MG/DL *CHILDREN AND ADOLESCENTS REPRESENTS INDIVIDUALA AGED 2-19 YEARS EXCLUSIVE. Trig 59 mg/dL 35-200 [facility] CHRONIC KIDNEY DISEASE STAGING PER NKF: MALE GFR INTERPRETATION: 20-49 YRS: [...] DESIRABLE: <130 MG/DL <110 MG/DL BORDERLINE-HIGH RISK: 130- 159 MG/DL 110-129 MG/DL HIGH RISK: >160 MG/DL >130 MG/DL *CHILDREN AND ADOLESCENTS REPRESENTS INDIVIDUALA AGED 2-19 YEARS EXCLUSIVE. Cholesterol in HDL [Mass/volume] in Serum or Plasma 46 mg/dL 35-55 [facility] ([facility] CHRONIC KIDNEY DISEASE STAGING PER NKF: MALE GFR INTERPRETATION: 20-49 YRS: [...] DESIRABLE: <130 MG/DL <110 MG/DL BORDERLINE-HIGH RISK: 130- 159 MG/DL 110-129 MG/DL HIGH RISK: >160 MG/DL >130 MG/DL *CHILDREN AND ADOLESCENTS REPRESENTS INDIVIDUALA AGED 2-19 YEARS EXCLUSIVE. LDL_C 77 Calc 75-129 [facility] ([facility] CHRONIC KIDNEY DISEASE STAGING PER NKF: MALE GFR INTERPRETATION: 20-49 YRS: [...] DESIRABLE: <130 MG/DL <110 MG/DL BORDERLINE-HIGH RISK: 130- 159 MG/DL 110-129 MG/DL HIGH RISK: >160 MG/DL >130 MG/DL *CHILDREN AND ADOLESCENTS REPRESENTS INDIVIDUALA AGED 2-19 YEARS EXCLUSIVE. Cho/HDL Ratio 2.9 Calc [facility] CHRONIC KIDNEY DISEASE STAGING PER NKF: MALE GFR INTERPRETATION: 20-49 YRS: [...] DESIRABLE: <130 MG/DL <110 MG/DL BORDERLINE-HIGH RISK: 130- 159 MG/DL 110-129 MG/DL HIGH RISK: >160 MG/DL >130 MG/DL *CHILDREN AND ADOLESCENTS REPRESENTS INDIVIDUALA AGED 2-19 YEARS EXCLUSIVE. ID Date Data Source [id number] 10/05/2020 09:18:00 AM EDT [facility] ([facility] Name Value Range Interpretation Code Description Data Sandra rce(s) Supporting Document(s) Glu 87 mg/dL 70-110 [facility] ([facility] CHRONIC KIDNEY DISEASE STAGING PER NKF: MALE GFR INTERPRETATION: 20-49 YRS: [...] DESIRABLE: <130 MG/DL <110 MG/DL BORDERLINE-HIGH RISK: 130- 159 MG/DL 110-129 MG/DL HIGH RISK: >160 MG/DL >130 MG/DL *CHILDREN AND ADOLESCENTS REPRESENTS INDIVIDUALA AGED 2-19 YEARS EXCLUSIVE. BUN/Creatinine Ratio 11.4 CALC MEDENT ([facility] CHRONIC KIDNEY DISEASE STAGING PER NKF: MALE GFR INTERPRETATION: 20-49 YRS: [...] DESIRABLE: <130 MG/DL <110 MG/DL BORDERLINE-HIGH RISK: 130- 159 MG/DL 110-129 MG/DL HIGH RISK: >160 MG/DL >130 MG/DL *CHILDREN AND ADOLESCENTS REPRESENTS INDIVIDUALA AGED 2-19 YEARS EXCLUSIVE. BUN 11 mg/dL 8-23 MEDENT ([facility] CHRONIC KIDNEY DISEASE STAGING PER NKF: MALE GFR INTERPRETATION: 20-49 YRS: [...] DESIRABLE: <130 MG/DL <110 MG/DL BORDERLINE-HIGH RISK: 130- 159 MG/DL 110-129 MG/DL HIGH RISK: >160 MG/DL >130 MG/DL *CHILDREN AND ADOLESCENTS REPRESENTS INDIVIDUALA AGED 2-19 YEARS EXCLUSIVE. Creat 1.0 mg/dL 0.7-1.2 [facility] ([facility] CHRONIC KIDNEY DISEASE STAGING PER NKF: MALE GFR INTERPRETATION: 20-49 YRS: [...] DESIRABLE: <130 MG/DL <110 MG/DL BORDERLINE-HIGH RISK: 130- 159 MG/DL 110-129 MG/DL HIGH RISK: >160 MG/DL >130 MG/DL *CHILDREN AND ADOLESCENTS REPRESENTS INDIVIDUALA AGED 2-19 YEARS EXCLUSIVE. K 4.5 mmol/L 3.5-5.1 [facility] ([facility] CHRONIC KIDNEY DISEASE STAGING PER NKF: MALE GFR INTERPRETATION: 20-49 YRS: [...] DESIRABLE: <130 MG/DL <110 MG/DL BORDERLINE-HIGH RISK: 130- 159 MG/DL 110-129 MG/DL HIGH RISK: >160 MG/DL >130 MG/DL *CHILDREN AND ADOLESCENTS REPRESENTS INDIVIDUALA AGED 2-19 YEARS EXCLUSIVE. Na 140 mmol/L 136-145 [facility] CHRONIC KIDNEY DISEASE STAGING PER NKF: MALE GFR INTERPRETATION: 20-49 YRS: [...] DESIRABLE: <130 MG/DL <110 MG/DL BORDERLINE-HIGH RISK: 130- 159 MG/DL 110-129 MG/DL HIGH RISK: >160 MG/DL >130 MG/DL *CHILDREN AND ADOLESCENTS REPRESENTS INDIVIDUALA AGED 2-19 YEARS EXCLUSIVE. CL 103.6 mmol/L 98.0-107.0 MEDENT ([facility] CHRONIC KIDNEY DISEASE STAGING PER NKF: MALE GFR INTERPRETATION: 20-49 YRS: [...] DESIRABLE: <130 MG/DL <110 MG/DL BORDERLINE-HIGH RISK: 130- 159 MG/DL 110-129 MG/DL HIGH RISK: >160 MG/DL >130 MG/DL *CHILDREN AND ADOLESCENTS REPRESENTS INDIVIDUALA AGED 2-19 YEARS EXCLUSIVE. CA 9.1 mg/dL 8.6-10.2 MEDJIE ([facility] CHRONIC KIDNEY DISEASE STAGING PER NKF: MALE GFR INTERPRETATION: 20-49 YRS: [...] DESIRABLE: <130 MG/DL <110 MG/DL BORDERLINE-HIGH RISK: 130- 159 MG/DL 110-129 MG/DL HIGH RISK: >160 MG/DL >130 MG/DL *CHILDREN AND ADOLESCENTS REPRESENTS INDIVIDUALA AGED 2-19 YEARS EXCLUSIVE. Co2 24.7 mmol/L 22.0-29.0 [facility] CHRONIC KIDNEY DISEASE STAGING PER NKF: MALE GFR INTERPRETATION: 20-49 YRS: [...] DESIRABLE: <130 MG/DL <110 MG/DL BORDERLINE-HIGH RISK: 130- 159 MG/DL 110-129 MG/DL HIGH RISK: >160 MG/DL >130 MG/DL *CHILDREN AND ADOLESCENTS REPRESENTS INDIVIDUALA AGED 2-19 YEARS EXCLUSIVE. Alb 4.5 g/dL 3.5-5.2 [facility] CHRONIC KIDNEY DISEASE STAGING PER NKF: MALE GFR INTERPRETATION: 20-49 YRS: [...] DESIRABLE: <130 MG/DL <110 MG/DL BORDERLINE-HIGH RISK: 130- 159 MG/DL 110-129 MG/DL HIGH RISK: >160 MG/DL >130 MG/DL *CHILDREN AND ADOLESCENTS REPRESENTS INDIVIDUALA AGED 2-19 YEARS EXCLUSIVE. TP 6.7 g/dL 6.6-8.7 [facility] ([facility] CHRONIC KIDNEY DISEASE STAGING PER NKF: MALE GFR INTERPRETATION: 20-49 YRS: [...] DESIRABLE: <130 MG/DL <110 MG/DL BORDERLINE-HIGH RISK: 130- 159 MG/DL 110-129 MG/DL HIGH RISK: >160 MG/DL >130 MG/DL *CHILDREN AND ADOLESCENTS REPRESENTS INDIVIDUALA AGED 2-19 YEARS EXCLUSIVE. A/G Ratio 2.0 CALC [facility] ([facility] CHRONIC KIDNEY DISEASE STAGING PER NKF: MALE GFR INTERPRETATION: 20-49 YRS: [...] DESIRABLE: <130 MG/DL <110 MG/DL BORDERLINE-HIGH RISK: 130- 159 MG/DL 110-129 MG/DL HIGH RISK: >160 MG/DL >130 MG/DL *CHILDREN AND ADOLESCENTS REPRESENTS INDIVIDUALA AGED 2-19 YEARS EXCLUSIVE. Globulin 2.2 CALC MEDENT ([facility] CHRONIC KIDNEY DISEASE STAGING PER NKF: MALE GFR INTERPRETATION: 20-49 YRS: [...] DESIRABLE: <130 MG/DL <110 MG/DL BORDERLINE-HIGH RISK: 130- 159 MG/DL 110-129 MG/DL HIGH RISK: >160 MG/DL >130 MG/DL *CHILDREN AND ADOLESCENTS REPRESENTS INDIVIDUALA AGED 2-19 YEARS EXCLUSIVE. Alp 85.1 U/L 40-129 [facility] ([facility] CHRONIC KIDNEY DISEASE STAGING PER NKF: MALE GFR INTERPRETATION: 20-49 YRS: [...] DESIRABLE: <130 MG/DL <110 MG/DL BORDERLINE-HIGH RISK: 130- 159 MG/DL 110-129 MG/DL HIGH RISK: >160 MG/DL >130 MG/DL *CHILDREN AND ADOLESCENTS REPRESENTS INDIVIDUALA AGED 2-19 YEARS EXCLUSIVE. Ast (Sgot) 23 U/L 0-40 [facility] CHRONIC KIDNEY DISEASE STAGING PER NKF: MALE GFR INTERPRETATION: 20-49 YRS: [...] DESIRABLE: <130 MG/DL <110 MG/DL BORDERLINE-HIGH RISK: 130- 159 MG/DL 110-129 MG/DL HIGH RISK: >160 MG/DL >130 MG/DL *CHILDREN AND ADOLESCENTS REPRESENTS INDIVIDUALA AGED 2-19 YEARS EXCLUSIVE. Alt (SGPT) 32 U/L 0-41 [facility] ([facility] CHRONIC KIDNEY DISEASE STAGING PER NKF: MALE GFR INTERPRETATION: 20-49 YRS: [...] DESIRABLE: <130 MG/DL <110 MG/DL BORDERLINE-HIGH RISK: 130- 159 MG/DL 110-129 MG/DL HIGH RISK: >160 MG/DL >130 MG/DL *CHILDREN AND ADOLESCENTS REPRESENTS INDIVIDUALA AGED 2-19 YEARS EXCLUSIVE. Tbili 0.45 mg/dL 0.0-1.2 MED[facility] ([facility] CHRONIC KIDNEY DISEASE STAGING PER NKF: MALE GFR INTERPRETATION: 20-49 YRS: [...] DESIRABLE: <130 MG/DL <110 MG/DL BORDERLINE-HIGH RISK: 130- 159 MG/DL 110-129 MG/DL HIGH RISK: >160 MG/DL >130 MG/DL *CHILDREN AND ADOLESCENTS REPRESENTS INDIVIDUALA AGED 2-19 YEARS EXCLUSIVE. Osmolality-Calculated 277.5 CALC MED ENT ([facility] CHRONIC KIDNEY DISEASE STAGING PER NKF: MALE GFR INTERPRETATION: 20-49 YRS: [...] DESIRABLE: <130 MG/DL <110 MG/DL BORDERLINE-HIGH RISK: 130- 159 MG/DL 110-129 MG/DL HIGH RISK: >160 MG/DL >130 MG/DL *CHILDREN AND ADOLESCENTS REPRESENTS INDIVIDUALA AGED 2-19 YEARS EXCLUSIVE. Anion Gap 16 mmol/L [facility] ([facility] CHRONIC KIDNEY DISEASE STAGING PER NKF: MALE GFR INTERPRETATION: 20-49 YRS: [...] DESIRABLE: <130 MG/DL <110 MG/DL BORDERLINE-HIGH RISK: 130- 159 MG/DL 110-129 MG/DL HIGH RISK: >160 MG/DL >130 MG/DL *CHILDREN AND ADOLESCENTS REPRESENTS INDIVIDUALA AGED 2-19 YEARS EXCLUSIVE. eGFR 96 # MEDENT ( [facility] CHRONIC KIDNEY DISEASE STAGING PER NKF: MALE GFR INTERPRETATION: 20-49 YRS: [...] DESIRABLE: <130 MG/DL <110 MG/DL BORDERLINE-HIGH RISK: 130- 159 MG/DL 110-129 MG/DL HIGH RISK: >160 MG/DL >130 MG/DL *CHILDREN AND ADOLESCENTS REPRESENTS INDIVIDUALA AGED 2-19 YEARS EXCLUSIVE. eGFR Non-Afr. [place] 83 # MEDENT ([facility] CHRONIC KIDNEY DISEASE STAGING PER NKF: MALE GFR INTERPRETATION: 20-49 YRS: [...] DESIRABLE: <130 MG/DL <110 MG/DL BORDERLINE-HIGH RISK: 130- 159 MG/DL 110-129 MG/DL HIGH RISK: >160 MG/DL >130 MG/DL *CHILDREN AND ADOLESCENTS REPRESENTS INDIVIDUALA AGED 2-19 YEARS EXCLUSIVE. Procedure Social History Code Duration Value Status Description Data Source(s ) Smoking 01/12/2021 12:00:00 AM EDT Patient has never smoked co mpleted Patient has never smoked MEDENT ([facility] [employer]) Vital Signs ID Date Data Source UNK Name Value Range Interpretation Code Description Data Source(s) Systolic blood pressure 124 mm[Hg] 124 mm[Hg] M KATHLEEN ([facility] Diastolic blood pressure 84 mm[Hg] 84 mm[Hg] MEDENT ([facility] Body temperature 98.3 [degF] 98.3 [degF] MEDENT ([facility] Heart rate 88 /min 88 /min MEDENT ([facility] Respiratory rate 18 /min 18 /min MEDENT ( [facility] Body weight 205.00 [lb_av] 205.00 [lb_av] MEDEN T ([facility] Oxygen saturation in Arterial blood by Pulse oximetry 97 % 97 % MEDENT ([facility] Body weight 211.00 [lb_av] 211.00 [lb_av] MEDEN T ([facility] Systolic blood pressure 124 mm[Hg] 124 mm[Hg] M EDENT ([facility] Diastolic blood pressure 80 mm[Hg] 80 mm[Hg] MEDENT ([facility] Heart rate 72 /min 72 /min MEDENT ([facility] Respiratory rate 14 /min 14 /min MEDENT ( [facility] Systolic blood pressure 138 mm[Hg] 138 mm[Hg] M EDENT ([facility] [employer]) Diastolic blood pressure 98 mm[Hg] 98 mm[Hg] MEDENT ([facility] [employer]) Heart rate 66 /min 66 /min MEDENT ([facility] [employer]) Respiratory rate 16 /min 16 /min MEDENT ( [facility] [employer]) Oxygen saturation in Arterial blood by Pulse oximetry 98 % 98 % MEDENT ([facility] [employer]) Body temperature 98.8 [degF] 98.8 [degF] MEDENT ([facility] [employer]) Body weight 210.00 [lb_av] 210.00 [lb_av] MEDEN T ([facility] [employer]) Body height 72 [in_i] 72 [in_i] MEDENT ([facility] [employer]) 6'0" Body mass index (BMI) [Ratio] 28.5 kg/m2 28.5 k g/m2 MEDENT ([facility] [employer]) Diastolic blood pressure 82 mm[Hg] 82 mm[Hg] MEDENT ([facility] Body temperature 98.5 [degF] 98.5 [degF] MEDENT ([facility] Systolic blood pressure 128 mm[Hg] 128 mm[Hg] M EDENT ([facility] Heart rate 84 /min 84 /min MEDENT ([facility] Respiratory rate 16 /min 16 /min MEDENT ( [facility] Body height 72 [in_i] 72 [in_i] MEDENT ([facility] 6'0" Body weight 219.00 [lb_av] 219.00 [lb_av] MEDEN T ([facility] [place] body weight 178 [lb_av] 178 [lb_av] MEDEN T ([facility] Body mass index (BMI) [Ratio] 29.7 kg/m2 29.7 k g/m2 MEDENT ([facility] Oxygen saturation in Arterial blood by Pulse oximetry 97 % 97 % AMBAR ([facility] Systolic blood pressure 122 mm[Hg] 122 mm[Hg] M EDENT ([facility] Diastolic blood pressure 76 mm[Hg] 76 mm[Hg] MEDENT ([facility] Body temperature 97.8 [degF] 97.8 [degF] MEDENT ([facility] Heart rate 72 /min 72 /min MEDENT ([facility] Respiratory rate 14 /min 14 /min MEDENT ( [facility] Body height 72 [in_i] 72 [in_i] MEDENT ([facility] 6'0" Body weight 219.00 [lb_av] 219.00 [lb_av] MEDEN T ([facility] [place] body weight 178 [lb_av] 178 [lb_av] MEDEN T ([facility] Body mass index (BMI) [Ratio] 29.7 kg/m2 29.7 k g/m2 MEDENT ([facility] Oxygen saturation in Arterial blood by Pulse oximetry 95 % 95 % AMBAR ([facility]
--- OUTSIDE RECORDS SUMMARY | 2021-06-14 09:47 | CCD | Continuity of Care Document ---
Author Author Kvng VITAL M.D. Organization Unknown Address [address] [address] Phone [phone] Problems Active Problems Provider Date Proteinuria Mike [...] 30capHoracio Vicente M.D. 10/17/19 - 04/12/2021 Immunizations Description No Information Available Vital Signs Date Vital Result Comment 04/12/2021 8:28am BP Systolic 124 mmHg BP Diastolic 80 mmHg Heart Rate 72 /min Respiratory Rate 14 /min Weight 211.00 lb 10/16/2020 1:46pm BP Systolic 128 mmHg BP Diastolic 82 mmHg Body Temperature 98.5 F Heart Rate 84 /min Respiratory Rate 16 /min Height 72 inches 6'0" Weight 219.00 lb [place] Body Weight 178 lb BMI (Body Mass Index) 29.7 kg/m2 O2 % BldC Oximetry 97 % Results Description No Information Available Procedures Date Code Description Status 04/12/2021 91647 Office/Outpatient Established Mo d MDM 30-39 Min Completed 10/16/2020 80455 Office/Outpatient Established Lo w MDM 20-29 Min Completed Medical Devices Description No Information Available Encounters Type Date Location Provider Dx Diagnosis Office Visit 04/12/2021 8:30a [place] [facility] Horacio Vital M. D. R74.01 Elevation of levels of liver transaminase levels F41.9 Anxiety disorder, unspecifie d E78.5 Hyperlipidemia, unspecified R80.9 Proteinuria, unspecified Office Visit 10/16/2020 1:30p [place] [facility] Horacio Vital M. D. L03.221 Cellulitis of neck Assessments Date Code Description Provider 04/12/2021 R74.01 Elevation of levels of liver tra nsaminase levels Horacio Vital M.D. 04/12/2021 F41.9 Anxiety disorder, unspecified Mi Horacio montano M.D. 04/12/2021 E78.5 Hyperlipidemia, unspecified [facility] Horacio allen M.D. 04/12/2021 R80.9 Proteinuria, unspecified KurtisHoracio abbott M.D. 10/16/2020 L03.221 Cellulitis of neck Anthony Vital M.D. Plan of Treatment No Information Available Functional Status Description No Information Available Mental Status Description No Information Available Referrals Description No Information Available
[2021-06-14 11:06] LABS: BASO % 0.4 % (0.0-1.0); EOS # 0.1 10^3/uL (0.0-0.5); EOS % 1.7 % (0.0-3.0); HEMATOCRIT 49.8 % (42.0-52.0); HEMOGLOBIN 16.8 g/dl (13.5-17.5); LYMPH # 2.4 10^3/uL (1.5-5.0); LYMPH % 28.9 % (24.0-44.0); MEAN CORPUSCULAR HEMOGLOBIN 30.7 pg (27.0-33.0); MEAN CORPUSCULAR HGB CONC 33.7 g/dl (32.0-36.5); MONO # 0.7 10^3/uL (0.0-0.8); MONO % 8.5 % (2.0-8.0); NEUTROPHILS # 4.9 10^3/uL (1.5-8.5); NEUTROPHILS % 60.1 % (36.0-66.0); PLATELET COUNT, AUTOMATED 254 10^3/uL (150-450); RED BLOOD COUNT 5.47 10^6/uL (4.30-6.10); WHITE BLOOD COUNT 8.1 10^3/uL (4.0-10.0)
[2021-06-14 11:32] LABS: ALT/SGPT 36 U/L (12-78); BILIRUBIN,DIRECT 0.2 MG/DL (0.0-0.2); BILIRUBIN,TOTAL 0.6 MG/DL (0.2-1.0); BLOOD UREA NITROGEN 14 MG/DL (7-18); CALCIUM LEVEL 8.7 MG/DL (8.5-10.1); CARBON DIOXIDE LEVEL 28 MEQ/L (21-32); CHLORIDE LEVEL 107 MEQ/L (98-107); CREATININE FOR GFR 1.09 MG/DL (0.70-1.30); GLOMERULAR FILTRATION RATE > 60.0 (>56); GLUCOSE, FASTING 88 MG/DL (70-100); LIPASE 245 U/L (73-393); SODIUM LEVEL 141 MEQ/L (136-145); TOTAL PROTEIN 7.2 GM/DL (6.4-8.2)
[2021-06-14] MEDS ORDERED: ISOVUE-370 76% 100ML VIAL As Ordered ONE (14:05)
--- NOTE | 2021-06-14 14:29 | REP ---
INDICATION: ABDOMINAL PAIN. COMPARISON: Report dated 10/17/2016 TECHNIQUE: Axial contrast-enhanced images from the lung bases to the pubic symphysis using 100 cc Isovue 370 intravenous contrast material. Coronal and sagittal reformations obtained. This CT examination was performed using the following dose reduction techniques: Automated exposure control, adjustment of mA and/or kv according to the patient's size, and the use of iterative reconstruction technique. FINDINGS: Liver, spleen, pancreas, bilateral adrenal glands and kidneys are normal. Cholelithiasis noted without evidence for acute cholecystitis. The enteric system including stomach, small, and large bowel appears normal. No evidence for obstruction or acute inflammatory process. Normal terminal ileum and appendix are identified in the right lower quadrant. Pelvis demonstrates normal bladder and age-appropriate prostate/seminal vesicles. Chronic appearing fat stranding and postsurgical changes in the left inguinal region noted along with 4 cm fat containing left inguinal hernia. No ascites. No free air. No intraperitoneal or retroperitoneal adenopathy. Abdominal aorta and vasculature appear normal. Musculoskeletal structures are intact and without acute osseous abnormality. IMPRESSION: No acute abdominopelvic pathology appreciated. Small to moderate fat containing left inguinal hernia. Cholelithiasis. <Electronically signed by Dwight Bradshaw > 06/14/21 [id number]
--- OUTSIDE RECORDS SUMMARY | 2021-06-14 14:31 | CCD ---
Author Author [facility] Organization [facility] Address Unknown Phone Unavailable Care Team Providers Care Piece Jobber Name Role Phone Ryan MENON MD Unavailable [...] Unavailable Unavailable Ryan MENON MD Unavailable Unavailable yRan MENON MD Unavailable Unavailable Ryan MENON MD [...] is protected by Article 27-F of the [facility] Public Health law. If you continue you may have access to information: Regarding HIV / AIDS; Provided by facilities licensed or operated by the [facility] Office of Mental Health; or Provided by the [facility] Office for People With Developmental Disabilities. If such information is present, then the following [facility] mandated warning applies: This information has been [...] law may result in a fine or prison sentence or both. A general authorization for the release of medical or other information is NOT sufficient authorization for further disc losure. Family History Family Member Name Family Member Gender Family Member Status Date o f Status Description Data Source(s) Unknown Unknown Problem [facility] ([facility] GM Unknown Unknown Problem [facility] ([facility] Unknown Unknown Problem [facility] ([facility]) Encounters Encounter Providers Location Date Indications Data Source(s ) Outpatient Attender: [facility] [place] [facility] 12:30:00 PM EST [facility] ([facility] Outpatient Attender: [facility] [place] [facility] 08:30:00 AM EDT [facility] ([facility] Outpatient Attender: SUNSHINE [facility] 01/12/2021 02:20:00 PM EDT [facility] ([facility]) Outpatient Attender: ARSENIO MENON MD [place] [facility] 01:30:00 PM EDT MED[facility] ([facility] Outpatient Attender: ARSENIO MENON MD [place] [facility] 09:00:00 AM EDT [facility] ([facility] Immunizations Vaccine Date Status Description Data Source(s) New in 2012. IIV4 04/12/2021 08:39:00 AM EDT completed [facility] ([facility] COVID-19 VACCINE Moderna 08/13/2020 12:00:00 AM EST completed NYSIIS Vaccine Series Complete: YESThis Data wa s Submitted to [facility] Via G3. COVID-19 VACCINE Moderna 07/16/2020 12:00:00 AM EST completed [facility]SIIS Vaccine Series Complete: NOThis Data was Submitted to [facility] Via G3. Medications Medication Brand Name Start Date Product [...] 06/12/2021 12:00:00 AM EST ORAL active MED[facility] ([facility] 20 mg 01/12/2021 12:00:00 AM EDT tablet 8 TAKE ONE TABLET BY MOUTH TWICE A DAY FOR 4 DAYS TAKE ONE TABLET BY MOUTH TWICE A DAY FOR 4 DAYS SOLD: 2020 [facility] Prednisone 20 MG Oral Tablet Prednisone 01/12/2021 12:00:00 AM EDT ORAL active MEDENT ([facility], [facility]) 90 mcg/actuation 01/12/2021 12:00:00 AM EDT HFA aerosol inha ler 8 INHALE 2 PUFFS BY MOUTH EVERY 4 TO 6 HOURS NEEDED INHALE 2 PUFFS BY MOUTH EVERY 4 TO 6 HOURS NEEDED SOLD: 01/12/2021 [facility] 200 ACTUAT Albuterol 0.09 MG/ACTUAT Metered Dose Inhaler [Pr oAir] Proair HFA 01/12/2021 12:00:00 AM EDT ORAL active MEDENT ([facility], [facility]) Amoxicillin 875 MG / Clavulanate 125 MG [...] 01/12/2021 12:00:00 AM EDT ORAL active MED[facility] ([facility], [facility]) Cephalexin 500 MG Oral Capsule CEPHALEXIN 10/16/2020 12:00:00 AM EDT capsule 30 TAKE ONE CAPSULE BY MOUTH THREE TIMES A DAY TAKE ONE C APSULE BY MOUTH THREE TIMES A DAY SOLD: 10/16/2020 [facility] Cephalexin 500 MG Oral Capsule [Keflex] Keflex 10/16/2020 12:00:0 0 AM EDT ORAL completed MED[facility] ([facility] Insurance Providers Payer name Policy type / Coverage type Policy ID Covered democrat ID Covered democrat's relationship to barboza Policy Barboza Plan Information [facility] GAGE JASON O 302/[phone] [id number] [id number] [facility] B [id number] O VYS [id number] [facility] Health Maintenance Organization ([facility]) [id number] Family Dependent [id number] [facility] Organization ([facility]) [id number] Family Dependent [id number] [facility] Health Maintenance Organization ([facility]) [id number] Family Dependent [id number] [facility] Health Maintenance Organization ([facility]) [id number] Family Dependent [id number] BCBS OF GAGE JASON [id number] WI2 [id number] [facility] [facility] Health Maintenance Organization (O) [id number] Family Dependent BCBS [place] PPO 302/307 [id number] WI2 [id number] BC[employer] [id number] Family Dependent Problems, Conditions, and Diagnoses No Information Surgeries/Procedures Procedure Description Date Indications Data Source(s) OFFICE OUTPATIENT VISIT 25 MINUTES 06/12/2021 12:00:00 AM EST [facility] ([facility] OFFICE OUTPATIENT VISIT 25 MINUTES 04/12/2021 12:00:00 AM EDT MED[facility] ([facility] OFFICE OUTPATIENT NEW 30 MINUTES 01/12/2021 12:00:00 A M EDT MEDENT ([facility], [facility]) OFFICE OUTPATIENT VISIT 15 MINUTES 10/16/2020 12:00:00 AM EDT MED[facility] ([facility] Results ID Date Data Source [id number] 04/12/2021 08:40:00 AM EDT MED[facility] ([facility] Name Value Range Interpretation Code Description Data Sandra rce(s) Supporting Document(s) Trig 116 mg/dL 35-200 [facility] ([facility] CHRONIC KIDNEY DISEASE [...] YEARS EXCLUSIVE. Cho/HDL Ratio 3.2 Calc MED[facility] ([facility] CHRONIC KIDNEY DISEASE STAGING PER [...] 2-19 YEARS EXCLUSIVE. ID Date Data Source [id number] 04/12/2021 08:40:00 AM EDT MED[facility] ([facility] Name Value Range Interpretation [...] YEARS EXCLUSIVE. Na 139 mmol/L 136-145 MED[facility] ([facility] CHRONIC KIDNEY DISEASE STAGING PER [...] YEARS EXCLUSIVE. BUN/Creatinine Ratio 12.1 Calc MEDENT ([facility] CHRONIC [...] YEARS EXCLUSIVE. K 4.6 mmol/L 3.5-5.1 MED[facility] ([facility] CHRONIC KIDNEY DISEASE STAGING PER [...] YEARS EXCLUSIVE. CL 102.3 mmol/L 98.0-107.0 MED[facility] ([facility] CHRONIC KIDNEY DISEASE STAGING PER [...] EXCLUSIVE. Alt (SGPT) 20 U/L 0-41 MED[facility] ([facility] CHRONIC KIDNEY DISEASE STAGING PER [...] Gap 17.1 mmol/L MED[facility] ([facility] CHRONIC KIDNEY DISEASE STAGING [...] INDIVIDUALA AGED 2-19 YEARS EXCLUSIVE. eGFR Non-Afr. Canadian 74 # MED[facility] ([facility] [...] 2-19 YEARS EXCLUSIVE. ID Date Data Source [id number] 01/12/2021 12:00:00 AM EDT [facility] Name Value Range Interpretation Code Description Data Sandra rce(s) Supporting Document(s) SARS-CoV2 Rapid Antigen Negative [facility] This lab was reported by [facility]. ID Date Data Source [id number] 10/05/2020 09:18:00 AM EDT MED[facility] ([facility] Name Value Range Interpretation [...] YEARS EXCLUSIVE. LDL_C 77 Calc 75-129 MED[facility] ([facility] CHRONIC KIDNEY DISEASE STAGING PER [...] YEARS EXCLUSIVE. Cho/HDL Ratio 2.9 Calc [facility] CHRONIC KIDNEY DISEASE STAGING PER [...] 2-19 YEARS EXCLUSIVE. ID Date Data Source [id number] 10/05/2020 09:18:00 AM EDT MED[facility] ([facility] Name Value Range Interpretation Code Description Data Sandra rce(s) Supporting Document(s) Glu 87 mg/dL 70-110 [facility] ([facility] CHRONIC KIDNEY DISEASE [...] YEARS EXCLUSIVE. BUN/Creatinine Ratio 11.4 CALC MEDENT ([facility] CHRONIC [...] YEARS EXCLUSIVE. BUN 11 mg/dL 8-23 MED[facility] ([facility] CHRONIC KIDNEY DISEASE STAGING [...] YEARS EXCLUSIVE. Na 140 mmol/L 136-145 [facility] ([facility] CHRONIC KIDNEY DISEASE STAGING PER [...] YEARS EXCLUSIVE. CL 103.6 mmol/L 98.0-107.0 MED[facility] ([facility] CHRONIC KIDNEY DISEASE STAGING [...] YEARS EXCLUSIVE. Co2 24.7 mmol/L 22.0-29.0 [facility] CHRONIC KIDNEY DISEASE STAGING PER [...] YEARS EXCLUSIVE. Alb 4.5 g/dL 3.5-5.2 [facility] CHRONIC KIDNEY DISEASE STAGING [...] EXCLUSIVE. Ast (Sgot) 23 U/L 0-40 [facility] ([facility] CHRONIC KIDNEY DISEASE STAGING PER [...] INDIVIDUALA AGED 2-19 YEARS EXCLUSIVE. eGFR Non-Afr. Canadian 83 # [facility] ([facility] [...] co mpleted Patient has never smoked [facility] ([facility], [facility]) Vital Signs ID Date Data Source UNK [...] pressure 138 mm[Hg] 138 mm[Hg] M EDENT ([facility], [facility]) Diastolic blood pressure 98 mm[Hg] 98 mm[Hg] MED[facility] ([facility], [facility]) Heart rate 66 /min 66 /min [facility] ([facility], [facility]) Respiratory rate 16 /min 16 /min MED[facility] ( [facility], [facility]) Oxygen saturation in Arterial blood by Pulse oximetry 98 % 98 % MEDENT ([facility], [facility]) Body temperature 98.8 [degF] 98.8 [degF] MEDENT ([facility], [facility]) Body weight 210.00 [lb_av] 210.00 [lb_av] MEDEN T ([facility], [facility]) Body height 72 [in_i] 72 [in_i] MEDENT ([facility], [facility]) 6'0" Body mass index (BMI) [Ratio] 28.5 kg/m2 28.5 k g/m2 MED[facility] ([facility], [facility]) Diastolic blood pressure 82 mm[Hg] 82 mm[Hg] [facility] ([facility] Systolic blood pressure 128 mm[Hg] 128 mm[facility]Hg] [facility] Body temperature 98.5 [degF] 98.5 [degF] MED[facility] ([facility] Heart rate 84 /min 84 /min [facility] ([facility] Respiratory rate 16 /min 16 /min [facility] ( [facility] Body height 72 [in_i] 72 [in_i] [facility] ([facility] 6'0" Body weight 219.00 [lb_av] 219.00 [lb_av] MEDEN T ([facility] [place] body weight 178 [lb_av] 178 [lb_av] MEDEN T ([facility] Body mass index (BMI) [Ratio] 29.7 kg/m2 29.7 k g/m2 [facility] ([facility] Oxygen saturation in Arterial blood by Pulse oximetry 97 % 97 % [facility] ([facility] Systolic blood pressure 122 mm[Hg] 122 mm[Hg] M EDENT ([facility] Diastolic blood pressure 76 mm[Hg] 76 mm[Hg] [facility] ([facility] Body temperature 97.8 [degF] 97.8 [degF] [facility] ([facility] Heart rate 72 /min 72 /min [facility] ([facility] Body weight 219.00 [lb_av] 219.00 [lb_av] MEDEN T ([facility] [place] body weight 178 [lb_av] 178 [lb_av] MEDEN T ([facility] Body mass index (BMI) [Ratio] 29.7 kg/m2 29.7 k g/m2 [facility] ([facility] Oxygen saturation in Arterial blood by Pulse oximetry 95 % 95 % [facility] ([facility] Respiratory rate 14 /min 14 /min MED[facility] ( [facility] Body height 72 [in_i] 72 [in_i] [facility] ([facility] 6'0"
[2021-06-14] MEDS ORDERED: ACET-897 PO (15:31)
[2021-06-14 16:10] VITALS: BP 164/104
== END 2021-06-14 16:26 | disposition home or self-care (01) ==
LOC: M ED 09:34
DX: K40.91 Unilateral inguinal hernia, without obstruction or gangrene, recurrent (principal); I10 Essential (primary) hypertension; K80.20 Calculus of gallbladder without cholecystitis without obstruction; E78.5 Hyperlipidemia, unspecified; Z98.890 Other specified postprocedural states
CPT/HCPCS: 36415; 74177; 80048; 80076; 81001; 83690; 85025; 99283; Q9967

== ENCOUNTER → 2021-06-17 | Outpatient (REF) | payer BC ==
[~2021-06-17] MED LIST changes: +ACET-897 PO; +COLA100C5 PO; +LOSA25TA13 PO; -LOSA25TA14 PO; +META28.32 PO; +OMEP40CA4 PO; +OXYC-778 PO; +POLY510P14 PO; +SUCR1TA PO; +TIZA10TA
== END ==
LOC: M LAB REF 11:34
PROVIDERS: ATTEND Internal Medicine
DX: R10.9 Unspecified abdominal pain (principal)

== ENCOUNTER → 2021-07-04 | Outpatient (CLI) | payer BC ==
[~2021-07-04] MED LIST changes: +E-Z-GAS II EFFERVESCENT PACKET (SODIUM BICARB./CITRIC ACID/SIMETHICONE) As Ordered ONE; +E-Z-HD 98% w/w 340GM SUSP BTL As Ordered ONE; +E-Z-PAQUE 96% w/w SUSP 176GM BTL As Ordered ONE; -LOSA25TA13 PO; +LOSA25TA14 PO; -OMEP40CA4 PO; -OXYC-778 PO; -POLY510P14 PO; -SUCR1TA PO; -TIZA10TA
--- NOTE | 2021-07-04 17:57 | REP ---
INDICATION: ABD PAIN/DISTENTION. COMPARISON: CT abdomen pelvis dated 06/14/2021 TECHNIQUE: This procedure was performed by LUIS E Singh, under the direct supervision of . Images were reviewed with Prior to dictation. Liquid barium and gas producing crystals were given in the erect position, as well as liquid barium in the prone oblique position in order to perform a double contrast upper GI examination. Additional liquid barium was given at the end of the examination in order to perform a small-bowel follow-through. FINDINGS: The rn dermatology film shows no organomegaly or pathological masses. The intestinal gas pattern is unremarkable. The oral and pharyngeal stages of deglutition were unremarkable. Esophageal transport is prompt and efficient and there is no evidence of esophagitis, stricture, or mucosal ring. There is no evidence of a hiatal hernia. Gastroesophageal reflux was not observed on this examination. The stomach coates are normally outlined. The rugal folds are smooth and regular. There is no gastritis, neoplasm, or ulcerative disease. The duodenal coates are normally outlined. The mucosal folds are smooth and regular. There is no duodenitis, peptic ulcer disease or neoplasm. The visualized portion of the proximal small bowel appears normal in course and caliber. The barium column was followed through the small bowel to the level of the terminal ileum. Small bowel transit time is approximately 15 minutes. During fluoroscopy gentle palpation shows all loops are freely movable and pliable. There is no fixed angulated loops. The small bowel mucosal pattern is normal in course and caliber. There is no transition to suggest a partial small bowel obstruction. Spot filming of the terminal ileum shows it to be unremarkable. IMPRESSION: Unremarkable upper GI with small-bowel follow-through Two minutes of fluoroscopy time was utilized for this procedure. Some fluoroscopic images are performed with last image hold technology. These images require no additional radiation. <Electronically signed by Ava Diaz > 07/04/21 [id number] <Electronically signed by Tenzin Crum > 07/04/21 [id number]
== END ==
LOC: M RAD 07:41
PROVIDERS: ATTEND Surgery
DX: R10.84 Generalized abdominal pain (principal); R14.0 Abdominal distension (gaseous)

== ENCOUNTER 2021-07-13 11:26 | Emergency (ER) | payer BC ==
[~2021-07-13] VITALS: Ht 182.9 cm; Wt 84.1 kg
[~2021-07-13 11:26] MED LIST changes: -E-Z-GAS II EFFERVESCENT PACKET (SODIUM BICARB./CITRIC ACID/SIMETHICONE) As Ordered ONE; -E-Z-HD 98% w/w 340GM SUSP BTL As Ordered ONE; -E-Z-PAQUE 96% w/w SUSP 176GM BTL As Ordered ONE; +LOSA25TA13 PO; -LOSA25TA14 PO; +OMEP40CA4 PO; +SUCR1TA PO
[2021-07-13] MEDS ORDERED: KETOROLAC 30 MG/ML 1ML VIAL IV ONE (12:05)
[2021-07-13] MEDS ORDERED: NS 1,000 ML IV SCH (12:05)
[2021-07-13 12:35] LABS: BASO % 0.3 % (0.0-1.0); EOS # 0.1 10^3/uL (0.0-0.5); EOS % 0.9 % (0.0-3.0); HEMATOCRIT 46.8 % (42.0-52.0); HEMOGLOBIN 16.4 g/dl (13.5-17.5); LYMPH # 2.2 10^3/uL (1.5-5.0); LYMPH % 29.9 % (24.0-44.0); MEAN CORPUSCULAR HEMOGLOBIN 31.1 pg (27.0-33.0); MEAN CORPUSCULAR VOLUME 88.6 fl (80.0-96.0); MONO # 0.6 10^3/uL (0.0-0.8); MONO % 8.3 % (2.0-8.0); NEUTROPHILS # 4.5 10^3/uL (1.5-8.5); NEUTROPHILS % 60.5 % (36.0-66.0); PLATELET COUNT, AUTOMATED 256 10^3/uL (150-450); RED BLOOD COUNT 5.28 10^6/uL (4.30-6.10); WHITE BLOOD COUNT 7.4 10^3/uL (4.0-10.0)
[2021-07-13] MEDS ORDERED: traMADol 50 MG TAB PO ONE (13:05)
[2021-07-13 13:29] LABS: ALBUMIN 4.1 GM/DL (3.2-5.2); ALT/SGPT 31 U/L (12-78); BILIRUBIN,DIRECT 0.2 MG/DL (0.0-0.2); BILIRUBIN,TOTAL 0.7 MG/DL (0.2-1.0); BLOOD UREA NITROGEN 18 MG/DL (7-18); CALCIUM LEVEL 9.2 MG/DL (8.5-10.1); CARBON DIOXIDE LEVEL 24 MEQ/L (21-32); CHLORIDE LEVEL 109 MEQ/L (98-107); CREATININE FOR GFR 1.01 MG/DL (0.70-1.30); GLOMERULAR FILTRATION RATE > 60.0 (>56); GLUCOSE, FASTING 112 MG/DL (70-100); LIPASE 351 U/L (73-393); POTASSIUM SERUM 3.6 MEQ/L (3.5-5.1); SODIUM LEVEL 142 MEQ/L (136-145); TOTAL PROTEIN 7.1 GM/DL (6.4-8.2)
[2021-07-13] MEDS ORDERED: ISOVUE-370 76% 100ML VIAL As Ordered ONE (13:45)
[2021-07-13] MEDS ORDERED: OXYC-778 PO (14:48)
[2021-07-13] MEDS ORDERED: POLY510P14 PO (14:48)
[2021-07-13 15:06] VITALS: BP 171/104
[2021-07-13] MEDS ORDERED: OXYCODONE/APAP 5MG/325MG(BULK FOR ED) 1 TABLET PO ONE (15:15)
== END 2021-07-13 15:15 | disposition home or self-care (01) ==
LOC: M ED 11:26
DX: K59.00 Constipation, unspecified (principal); I10 Essential (primary) hypertension; G89.29 Other chronic pain; M54.6 Pain in thoracic spine; K76.89 Other specified diseases of liver; Z79.899 Other long term (current) drug therapy
CPT/HCPCS: 71275; 74174; 80048; 80076; 81001; 83690; 85025; 93005; 96361; 96374; 99284; J1885; Q9967

== ENCOUNTER → 2021-07-15 | Outpatient (CLI) | payer BC ==
[~2021-07-15] MED LIST changes: +OXYC-778 PO; +POLY510P14 PO; +TIZA10TA
== END ==
LOC: M LABSMTC 10:02
PROVIDERS: ATTEND Anesthesiology
DX: Z01.818 Encounter for other preprocedural examination (principal); Z11.52 Encounter for screening for COVID-19

== ENCOUNTER 2021-07-18 13:11 | Day surgery (SDC) | payer BC ==
[~2021-07-18] VITALS: Ht 182.9 cm; Wt 84.4 kg
[2021-07-18] MEDS: NS 1,000 ML IV SCH ×3 (06:00→13:40)
[~2021-07-18 13:11] MED LIST changes: +LIDOCAINE 2% 100MG/5ML SDV (FOR ANES.) As Ordered ONE; -LOSA25TA13 PO; +LOSA25TA14 PO; -TIZA10TA; +propofoL 200 MG/20 ML VIAL As Ordered ONE
--- NOTE | 2021-07-18 14:30 | ROOR ---
Patient Name: Kvng Farris Procedure Date: 07/18/2021 2:04 PM Date of : 1960 Age: 60 Room: [facility] Gender: Male Note Status: Finalized Procedure: Upper GI endoscopy Indications: Epigastric abdominal pain Providers: Hola Dunn Jr, MD Referring MD: ARSENIO MENON MD Requesting Provider: Medicines: Propofol per Anesthesia Complications: No immediate complications. Procedure: Pre-Anesthesia Assessment: - Prior to the procedure, a History and Physical was performed, and patient medications and allergies were reviewed. The patient is competent. The risks and benefits of the procedure and the sedation options and risks were discussed with the patient. All questions were answered and informed consent was obtained. Patient identification and proposed procedure were verified by the physician and the nurse in the pre-procedure area and in the procedure room. Mental Status Examination: alert and oriented. Airway Examination: normal oropharyngeal airway and neck mobility. Respiratory Examination: clear to auscultation. CV Examination: normal. ASA Grade Assessment: II - A patient with mild systemic disease. After reviewing the risks and benefits, the patient was deemed in satisfactory condition to undergo the procedure. The anesthesia plan was to use moderate sedation / analgesia (conscious sedation). Immediately prior to administration of medications, the patient was re-assessed for adequacy to receive sedatives. The heart rate, respiratory rate, oxygen saturations, blood pressure, adequacy of pulmonary ventilation, and response to care were monitored throughout the procedure. The physical status of the patient was re-assessed after the procedure. The Endoscope was introduced through the mouth, and advanced to the second part of duodenum. The upper GI endoscopy was accomplished without difficulty. The patient tolerated the procedure well. Findings: The upper third of the esophagus, middle third of the esophagus and lower third of the esophagus were normal. The cardia, gastric fundus and gastric body were normal. Diffuse mildly erythematous mucosa was found in the gastric antrum and in the prepyloric region of the stomach. Biopsies were taken with a cold forceps for histology. The duodenal bulb, first portion of the duodenum and second portion of the duodenum were normal. Impression: - Normal upper third of esophagus, middle third of esophagus and lower third of esophagus. - Normal cardia, gastric fundus and gastric body. - Erythematous mucosa in the antrum and prepyloric region of the stomach. Biopsied. - Normal duodenal bulb, first portion of the duodenum and second portion of the duodenum. Recommendation: - Discharge patient to home (ambulatory). - Return to my office as previously scheduled. Procedure Code(s): --- Professional --- 37178, Esophagogastroduodenoscopy, flexible, transoral; with biopsy, single or multiple Diagnosis Code(s): --- Professional --- K31.89, Other diseases of stomach and duodenum R10.13, Epigastric pain CPT copyright 2019 [employer]. All rights reserved. The codes documented in this report are preliminary and upon elevator runner review may be revised to meet current compliance requirements. Hola Dunn MD Hola Dunn Jr, MD 07/18/2021 2:30:16 PM Electronically signed by Hola Dunn Jr, MD Number of Addenda: 0 Note Initiated On: 07/18/2021 2:04 PM Estimated Blood Loss: Estimated blood loss: none.
[2021-07-18 15:11] VITALS: BP 135/99
== END 2021-07-18 15:14 | disposition home or self-care (01) ==
LOC: M OPP 13:11
PROVIDERS: ATTEND Surgery
DX: K29.70 Gastritis, unspecified, without bleeding (principal); R10.13 Epigastric pain; Z79.899 Other long term (current) drug therapy
CPT/HCPCS: 43239; 88305; U0002

== ENCOUNTER 2021-07-28 10:33 | Emergency (ER) | payer BC ==
[~2021-07-28] VITALS: Ht 182.9 cm; Wt 83.9 kg
[~2021-07-28 10:33] MED LIST changes: -LIDOCAINE 2% 100MG/5ML SDV (FOR ANES.) As Ordered ONE; +LOSA25TA13 PO; -LOSA25TA14 PO; -propofoL 200 MG/20 ML VIAL As Ordered ONE
[2021-07-28] MEDS ORDERED: TIZA10TA (10:53)
[2021-07-28] MEDS ORDERED: KETOROLAC 30 MG/ML 1ML VIAL IV ONE (12:40)
[2021-07-28 13:34] LABS: BASO % 0.4 % (0.0-1.0); EOS # 0.1 10^3/uL (0.0-0.5); EOS % 1.4 % (0.0-3.0); HEMOGLOBIN 15.9 g/dl (13.5-17.5); LYMPH # 2.8 10^3/uL (1.5-5.0); LYMPH % 30.5 % (24.0-44.0); MEAN CORPUSCULAR HGB CONC 34.6 g/dl (32.0-36.5); MEAN CORPUSCULAR VOLUME 89.7 fl (80.0-96.0); MONO # 0.7 10^3/uL (0.0-0.8); MONO % 8.1 % (2.0-8.0); NEUTROPHILS # 5.4 10^3/uL (1.5-8.5); NEUTROPHILS % 59.3 % (36.0-66.0); PLATELET COUNT, AUTOMATED 280 10^3/uL (150-450); RED BLOOD COUNT 5.13 10^6/uL (4.30-6.10); WHITE BLOOD COUNT 9.1 10^3/uL (4.0-10.0)
[2021-07-28 13:58] LABS: ALBUMIN 4.1 GM/DL (3.2-5.2); ALT/SGPT 49 U/L (12-78); BILIRUBIN,DIRECT 0.2 MG/DL (0.0-0.2); BILIRUBIN,TOTAL 0.5 MG/DL (0.2-1.0); BLOOD UREA NITROGEN 14 MG/DL (7-18); CALCIUM LEVEL 9.5 MG/DL (8.5-10.1); CARBON DIOXIDE LEVEL 28 MEQ/L (21-32); CHLORIDE LEVEL 109 MEQ/L (98-107); GLOMERULAR FILTRATION RATE > 60.0 (>56); GLUCOSE, FASTING 90 MG/DL (70-100); LIPASE 441 U/L (73-393); SODIUM LEVEL 143 MEQ/L (136-145)
[2021-07-28 16:17] VITALS: BP 149/100
== END 2021-07-28 16:41 | disposition home or self-care (01) ==
LOC: M ED 10:33
DX: K80.20 Calculus of gallbladder without cholecystitis without obstruction (principal); K85.90 Acute pancreatitis without necrosis or infection, unspecified; I10 Essential (primary) hypertension; Z79.899 Other long term (current) drug therapy
CPT/HCPCS: 72128; 72131; 76705; 80048; 80076; 81001; 83690; 85025; 96374; 99284; J1885

== ENCOUNTER → 2021-07-31 | Outpatient (CLI) | payer BC ==
[~2021-07-31] MED LIST changes: +TIZA10TA
== END ==
LOC: M PLAIMG 14:54
PROVIDERS: ATTEND Orthopaedic Surgery Orthopaedic Surgery of the Spine
DX: M54.50 Low back pain, unspecified (principal); M54.6 Pain in thoracic spine

== ENCOUNTER 2021-10-30 11:46 | Day surgery (SDC) | payer BC ==
[~2021-10-30] VITALS: Ht 182.9 cm; Wt 74.4 kg
[~2021-10-30 11:46] MED LIST changes: +AMIT25TA17; +NS 1,000 ML IV ONE; +OMEP40CA5
[2021-10-30] MEDS ORDERED: propofoL 200 MG/20 ML VIAL As Ordered ONE (13:52)
[2021-10-30] MEDS ORDERED: LIDOCAINE 2% 100MG/5ML SDV (FOR ANES.) As Ordered ONE (13:52)
[2021-10-30 14:20] VITALS: BP 118/77
== END 2021-10-30 14:38 | disposition home or self-care (01) ==
LOC: M OPP 11:46
PROVIDERS: ATTEND Internal Medicine Gastroenterology
DX: Z12.11 Encounter for screening for malignant neoplasm of colon (principal); K64.0 First degree hemorrhoids; R10.9 Unspecified abdominal pain; Z79.899 Other long term (current) drug therapy

== ENCOUNTER → 2022-01-05 | Outpatient (REF) | payer BC ==
[~2022-01-05] MED LIST changes: -NS 1,000 ML IV ONE
[2022-01-23 10:08] LABS: CALPROTECTIN STOOL <16 ug/g (0-120); FATS NEUTRAL Normal (.); FATS TOTAL Normal (.); H PYLORI STOOL ANTIGEN Positive (Negative); PANCREATIC ELASTASE STOOL 168 (>200)
== END ==
LOC: M LAB REF 12:28
PROVIDERS: ATTEND Student in an Organized Health Care Education/Training Program
DX: R19.7 Diarrhea, unspecified (principal); R63.4 Abnormal weight loss

== ENCOUNTER → 2022-01-06 | Outpatient (CLI) | payer BC ==
[2022-01-06 13:22] LABS: BASO # 0.1 10^3/uL (0.0-0.2); BASO % 0.8 % (0.0-1.0); EOS # 0.3 10^3/uL (0.0-0.5); EOS % 3.8 % (0.0-3.0); HEMATOCRIT 42.6 % (42.0-52.0); HEMOGLOBIN 14.7 g/dl (13.5-17.5); LYMPH # 2.2 10^3/uL (1.5-5.0); LYMPH % 33.7 % (24.0-44.0); MEAN CORPUSCULAR HEMOGLOBIN 31.7 pg (27.0-33.0); MEAN CORPUSCULAR HGB CONC 34.5 g/dl (32.0-36.5); MONO # 0.6 10^3/uL (0.0-0.8); MONO % 8.5 % (2.0-8.0); NEUTROPHILS # 3.5 10^3/uL (1.5-8.5); NEUTROPHILS % 52.9 % (36.0-66.0); PLATELET COUNT, AUTOMATED 238 10^3/uL (150-450); RED BLOOD COUNT 4.63 10^6/uL (4.30-6.10); WHITE BLOOD COUNT 6.6 10^3/uL (4.0-10.0)
[2022-01-06 13:51] LABS: ALBUMIN 3.8 GM/DL (3.2-5.2); ALT/SGPT 31 U/L (12-78); BILIRUBIN,TOTAL 0.4 MG/DL (0.2-1.0); BLOOD UREA NITROGEN 13 MG/DL (7-18); CALCIUM LEVEL 8.8 MG/DL (8.5-10.1); CARBON DIOXIDE LEVEL 27 MEQ/L (21-32); CHLORIDE LEVEL 107 MEQ/L (98-107); CREATININE FOR GFR 1.04 MG/DL (0.70-1.30); GLOMERULAR FILTRATION RATE > 60.0 (>56); GLUCOSE, FASTING 67 MG/DL (70-100); POTASSIUM SERUM 3.8 MEQ/L (3.5-5.1); SODIUM LEVEL 142 MEQ/L (136-145); TOTAL PROTEIN 6.3 GM/DL (6.4-8.2)
[2022-01-06 14:29] LABS: CA19-9 TUMOR MARKER,CARBOHYDRA 26.3 U/ML (<35.0)
[2022-01-06 14:32] LABS: ERYTHROCYTE SEDIMENTATION RATE 4 mm/hr (0-20)
== END ==
LOC: M WUC 10:33
PROVIDERS: ATTEND Student in an Organized Health Care Education/Training Program
DX: R19.7 Diarrhea, unspecified (principal); R63.4 Abnormal weight loss

== ENCOUNTER → 2022-01-23 | Outpatient (CLI) | payer BC ==
[2022-01-23 17:49] LABS: HEMATOCRIT 41.9 % (42.0-52.0); HEMOGLOBIN 14.4 g/dl (13.5-17.5); MEAN CORPUSCULAR HEMOGLOBIN 31.4 pg (27.0-33.0); MEAN CORPUSCULAR HGB CONC 34.4 g/dl (32.0-36.5); MEAN CORPUSCULAR VOLUME 91.3 fl (80.0-96.0); PLATELET COUNT, AUTOMATED 241 10^3/uL (150-450); RED BLOOD COUNT 4.59 10^6/uL (4.30-6.10); WHITE BLOOD COUNT 7.1 10^3/uL (4.0-10.0)
[2022-01-23 18:03] LABS: ALBUMIN 3.9 GM/DL (3.2-5.2); ALT/SGPT 25 U/L (12-78); BILIRUBIN,TOTAL 0.4 MG/DL (0.2-1.0); BLOOD UREA NITROGEN 17 MG/DL (7-18); CALCIUM LEVEL 9.1 MG/DL (8.5-10.1); CARBON DIOXIDE LEVEL 27 MEQ/L (21-32); CHLORIDE LEVEL 111 MEQ/L (98-107); GLOMERULAR FILTRATION RATE > 60.0 (>56); GLUCOSE, FASTING 85 MG/DL (70-100); POTASSIUM SERUM 3.7 MEQ/L (3.5-5.1); SODIUM LEVEL 141 MEQ/L (136-145); TOTAL PROTEIN 6.3 GM/DL (6.4-8.2)
== END ==
LOC: M LAB 16:25
PROVIDERS: ATTEND Student in an Organized Health Care Education/Training Program
DX: R63.4 Abnormal weight loss (principal)

== ENCOUNTER → 2022-02-03 | Outpatient (CLI) | payer BC ==
[2022-02-03 16:31] LABS: HEMATOCRIT 40.2 % (42.0-52.0); HEMOGLOBIN 13.6 g/dl (13.5-17.5); MEAN CORPUSCULAR HEMOGLOBIN 30.9 pg (27.0-33.0); MEAN CORPUSCULAR HGB CONC 33.8 g/dl (32.0-36.5); MEAN CORPUSCULAR VOLUME 91.4 fl (80.0-96.0); PLATELET COUNT, AUTOMATED 233 10^3/uL (150-450); WHITE BLOOD COUNT 5.8 10^3/uL (4.0-10.0)
[2022-02-03 17:06] LABS: ALBUMIN 3.4 GM/DL (3.2-5.2); ALT/SGPT 57 U/L (12-78); BILIRUBIN,TOTAL 0.4 MG/DL (0.2-1.0); BLOOD UREA NITROGEN 12 MG/DL (7-18); CALCIUM LEVEL 8.6 MG/DL (8.5-10.1); CARBON DIOXIDE LEVEL 28 MEQ/L (21-32); CHLORIDE LEVEL 111 MEQ/L (98-107); GLOMERULAR FILTRATION RATE > 60.0 (>56); GLUCOSE, FASTING 92 MG/DL (70-100); SODIUM LEVEL 145 MEQ/L (136-145)
== END ==
LOC: M LAB 15:47
PROVIDERS: ATTEND Student in an Organized Health Care Education/Training Program
DX: R63.4 Abnormal weight loss (principal); R19.7 Diarrhea, unspecified; A04.8 Other specified bacterial intestinal infections

== ENCOUNTER → 2022-03-11 | Outpatient (REF) | payer BC | LOC: M LAB REF 11:04 | PROVIDERS: ATTEND Student in an Organized Health Care Education/Training Program | DX: R19.7 Diarrhea, unspecified (principal); A04.8 Other specified bacterial intestinal infections; R63.4 Abnormal weight loss ==

== ENCOUNTER → 2022-03-13 | Outpatient (CLI) | payer BC ==
[2022-03-13 08:13] LABS: HEMATOCRIT 39.1 % (42.0-52.0); HEMOGLOBIN 13.8 g/dl (13.5-17.5); MEAN CORPUSCULAR HEMOGLOBIN 31.7 pg (27.0-33.0); MEAN CORPUSCULAR HGB CONC 35.3 g/dl (32.0-36.5); MEAN CORPUSCULAR VOLUME 89.9 fl (80.0-96.0); PLATELET COUNT, AUTOMATED 242 10^3/uL (150-450); RED BLOOD COUNT 4.35 10^6/uL (4.30-6.10)
[2022-03-13 08:50] LABS: ALBUMIN 3.5 GM/DL (3.2-5.2); ALT/SGPT 39 U/L (12-78); BILIRUBIN,TOTAL 0.6 MG/DL (0.2-1.0); BLOOD UREA NITROGEN 12 MG/DL (7-18); CALCIUM LEVEL 8.9 MG/DL (8.5-10.1); CARBON DIOXIDE LEVEL 30 MEQ/L (21-32); CHLORIDE LEVEL 107 MEQ/L (98-107); CREATININE FOR GFR 0.96 MG/DL (0.70-1.30); GLOMERULAR FILTRATION RATE > 60.0 (>56); GLUCOSE, FASTING 73 MG/DL (70-100); POTASSIUM SERUM 3.3 MEQ/L (3.5-5.1); SODIUM LEVEL 142 MEQ/L (136-145); TOTAL PROTEIN 5.8 GM/DL (6.4-8.2)
== END ==
LOC: M LAB 07:32
PROVIDERS: ATTEND Student in an Organized Health Care Education/Training Program
DX: R63.4 Abnormal weight loss (principal)

== ENCOUNTER → 2022-04-01 | Outpatient (CLI) | payer BC | LOC: M PLALAB 08:05 → M LAB 08:05 | PROVIDERS: ATTEND Student in an Organized Health Care Education/Training Program | DX: R63.4 Abnormal weight loss (principal) ==

== ENCOUNTER → 2022-05-27 | Outpatient (REF) | payer BC ==
[2022-05-27 18:35] LABS: MALB URINE SIEMENS 20.1 MG/L; MAU/CREAT RATIO 10.7 MCG/MG (0.0-30.0); TOTAL PROTEIN,RANDOM URINE 81.5 MG/DL (0.0-12.0)
[2022-05-27 19:09] LABS: BACTERIA, URINE NONE SEEN; CALCIUM OXALATE CRYSTALS,URINE SMALL AMOUNT /hpf; HYALINE CAST, URINE NONE SEEN /lpf (0-1); RBC, URINE NONE SEEN /hpf (0-3); SQUAMOUS EPITHELIAL CELL URINE NONE SEEN /hpf (SMALL AMT); WBC, URINE NONE SEEN /hpf (0-3)
== END ==
LOC: M LAB REF 16:58
PROVIDERS: ATTEND Nurse Practitioner Family
DX: R80.9 Proteinuria, unspecified (principal); R31.29 Other microscopic hematuria

== ENCOUNTER → 2022-09-12 | Outpatient (CLI) | payer BC ==
[2022-09-12 10:23] LABS: HEMATOCRIT 41.3 % (42.0-52.0); MEAN CORPUSCULAR HEMOGLOBIN 31.2 pg (27.0-33.0); MEAN CORPUSCULAR HGB CONC 33.9 g/dl (32.0-36.5); PLATELET COUNT, AUTOMATED 181 10^3/uL (150-450); RED BLOOD COUNT 4.49 10^6/uL (4.30-6.10); WHITE BLOOD COUNT 5.7 10^3/uL (4.0-10.0)
[2022-09-12 11:01] LABS: ALBUMIN 3.8 G/DL (3.2-5.2); ALKALINE PHOSPHATASE 73 U/L (46-116); ALT/SGPT 19 U/L (7.0-40); AST/SGOT 19 U/L (<34); BILIRUBIN,TOTAL 0.8 MG/DL (0.3-1.2); BLOOD UREA NITROGEN 19 MG/DL (9-23); CALCIUM LEVEL 8.9 MG/DL (8.5-10.1); CARBON DIOXIDE LEVEL 29 MMOL/L (20-31); CHLORIDE LEVEL 107 MMOL/L (98-107); CHOLESTEROL LEVEL 119 MG/DL (<200); CHOLESTEROL RISK RATIO 2.81 (<5); CREATININE FOR GFR 1.15 MG/DL (0.70-1.30); GLOMERULAR FILTRATION RATE > 60.0 (>56); GLUCOSE, FASTING 88 MG/DL (60-100); HDL CHOLESTEROL 42.3 MG/DL (>40); LDL CHOLESTEROL 56.9 MG/DL (<100); NON-HDL-C 77 MG/DL; POTASSIUM SERUM 4.1 MMOL/L (3.5-5.1); SODIUM LEVEL 142 MMOL/L (136-145); TOTAL PROTEIN 6.1 G/DL (5.7-8.2); TRIGLYCERIDES LEVEL 99 MG/DL (<150)
== END ==
LOC: M WUC 08:11
PROVIDERS: ATTEND Internal Medicine
DX: E78.5 Hyperlipidemia, unspecified (principal)

== ENCOUNTER 2022-10-20 11:09 | Emergency (ER) | payer BC ==
[~2022-10-20] VITALS: Ht 182.9 cm; Wt 70.5 kg
[2022-10-20] MEDS ORDERED: CREO3600 (11:19)
[2022-10-20 14:50] LABS: BASO % 0.7 % (0.0-1.0); EOS # 0.2 10^3/uL (0.0-0.5); EOS % 2.9 % (0.0-3.0); HEMATOCRIT 40.3 % (42.0-52.0); HEMOGLOBIN 14.1 g/dl (13.5-17.5); LYMPH # 2.2 10^3/uL (1.5-5.0); LYMPH % 39.1 % (24.0-44.0); MEAN CORPUSCULAR HEMOGLOBIN 31.5 pg (27.0-33.0); MEAN CORPUSCULAR VOLUME 90.2 fl (80.0-96.0); MONO # 0.5 10^3/uL (0.0-0.8); MONO % 9.6 % (2.0-8.0); NEUTROPHILS # 2.6 10^3/uL (1.5-8.5); NEUTROPHILS % 47.5 % (36.0-66.0); PLATELET COUNT, AUTOMATED 186 10^3/uL (150-450); RED BLOOD COUNT 4.47 10^6/uL (4.30-6.10); WHITE BLOOD COUNT 5.5 10^3/uL (4.0-10.0)
[2022-10-20 15:20] LABS: C REACTIVE PROTEIN QUANTITATIV < 0.40 MG/DL (<1.0); LIPASE 51 U/L (12-53)
[2022-10-20 15:21] LABS: AMYLASE 84 U/L (30-118)
[2022-10-20 15:26] LABS: ERYTHROCYTE SEDIMENTATION RATE 9 mm/hr (0-20)
[2022-10-20 15:29] LABS: ALBUMIN 3.8 G/DL (3.2-5.2); ALKALINE PHOSPHATASE 72 U/L (46-116); ALT/SGPT 22 U/L (7.0-40); AST/SGOT 16 U/L (<34); BILIRUBIN,DIRECT 0.4 MG/DL (<0.4); BILIRUBIN,TOTAL 0.9 MG/DL (0.3-1.2); BLOOD UREA NITROGEN 15 MG/DL (9-23); CALCIUM LEVEL 8.7 MG/DL (8.5-10.1); CARBON DIOXIDE LEVEL 24 MMOL/L (20-31); CHLORIDE LEVEL 110 MMOL/L (98-107); CREATININE FOR GFR 1.21 MG/DL (0.70-1.30); GLOMERULAR FILTRATION RATE > 60.0 (>56); GLUCOSE, FASTING 82 MG/DL (60-100); SODIUM LEVEL 138 MMOL/L (136-145)
[2022-10-20] MEDS ORDERED: MEDR4PAK PO (16:50)
[2022-10-20 16:53] VITALS: BP 140/89
[2022-10-20 18:22] LABS: TOTAL PROTEIN 6.4 G/DL (5.7-8.2)
== END 2022-10-20 17:04 | disposition home or self-care (01) ==
LOC: M ED 11:09
DX: R10.9 Unspecified abdominal pain (principal); M51.36 Other intervertebral disc degeneration, lumbar region

== ENCOUNTER → 2022-12-02 | Outpatient (CLI) | payer BC ==
[~2022-12-02] MED LIST changes: +CREO3600; +MEDR4PAK PO
[2022-12-02 14:33] LABS: HEMATOCRIT 37.4 % (42.0-52.0); MEAN CORPUSCULAR HEMOGLOBIN 31.3 pg (27.0-33.0); MEAN CORPUSCULAR HGB CONC 34.8 g/dl (32.0-36.5); MEAN CORPUSCULAR VOLUME 90.1 fl (80.0-96.0); PLATELET COUNT, AUTOMATED 177 10^3/uL (150-450); RED BLOOD COUNT 4.15 10^6/uL (4.30-6.10); WHITE BLOOD COUNT 5.2 10^3/uL (4.0-10.0)
[2022-12-02 14:35] LABS: LIPASE 84 U/L (12-53)
[2022-12-02 14:37] LABS: C REACTIVE PROTEIN QUANTITATIV < 0.40 MG/DL (<1.0)
[2022-12-02 14:38] LABS: ALBUMIN 3.5 G/DL (3.2-5.2); ALKALINE PHOSPHATASE 52 U/L (46-116); ALT/SGPT 27 U/L (7.0-40); AST/SGOT 19 U/L (<34); BILIRUBIN,DIRECT 0.3 MG/DL (<0.4); BILIRUBIN,TOTAL 0.7 MG/DL (0.3-1.2); TOTAL PROTEIN 5.8 G/DL (5.7-8.2)
== END ==
LOC: M LAB 12:53
PROVIDERS: ATTEND Internal Medicine Gastroenterology
DX: R19.7 Diarrhea, unspecified (principal); R10.9 Unspecified abdominal pain

== ENCOUNTER → 2022-12-09 | Outpatient (CLI) | payer BC | LOC: M RAD 16:39 → M LAB 16:39 | PROVIDERS: ATTEND Internal Medicine Gastroenterology | DX: R10.9 Unspecified abdominal pain (principal); R14.0 Abdominal distension (gaseous); R14.1 Gas pain ==

== ENCOUNTER 2022-12-15 18:33 | Emergency (ER) | payer BC ==
[~2022-12-15] VITALS: Ht 182.9 cm; Wt 68.4 kg
[2022-12-15] MEDS ORDERED: SUCR1TAB56 (18:41)
[2022-12-15] MEDS ORDERED: NORT10CA2 (18:41)
[2022-12-15 19:52] LABS: BASO % 0.5 % (0.0-1.0); EOS # 0.1 10^3/uL (0.0-0.5); EOS % 1.8 % (0.0-3.0); HEMATOCRIT 35.6 % (42.0-52.0); HEMOGLOBIN 12.6 g/dl (13.5-17.5); LYMPH # 2.1 10^3/uL (1.5-5.0); LYMPH % 34.4 % (24.0-44.0); MEAN CORPUSCULAR HEMOGLOBIN 31.8 pg (27.0-33.0); MEAN CORPUSCULAR HGB CONC 35.4 g/dl (32.0-36.5); MEAN CORPUSCULAR VOLUME 89.9 fl (80.0-96.0); MONO # 0.6 10^3/uL (0.0-0.8); MONO % 9.9 % (2.0-8.0); NEUTROPHILS # 3.3 10^3/uL (1.5-8.5); NEUTROPHILS % 53.1 % (36.0-66.0); PLATELET COUNT, AUTOMATED 200 10^3/uL (150-450); RED BLOOD COUNT 3.96 10^6/uL (4.30-6.10); WHITE BLOOD COUNT 6.2 10^3/uL (4.0-10.0)
[2022-12-15 20:16] LABS: CK-MB VALUE MASS 1.5 NG/ML (<3.6); LIPASE 108 U/L (12-53)
[2022-12-15 20:18] LABS: ALBUMIN 3.7 G/DL (3.2-5.2); ALKALINE PHOSPHATASE 62 U/L (46-116); ALT/SGPT 34 U/L (7.0-40); AST/SGOT 26 U/L (<34); BILIRUBIN,DIRECT 0.2 MG/DL (<0.4); BILIRUBIN,TOTAL 0.5 MG/DL (0.3-1.2); BLOOD UREA NITROGEN 16 MG/DL (9-23); CALCIUM LEVEL 8.6 MG/DL (8.3-10.6); CARBON DIOXIDE LEVEL 24 MMOL/L (20-31); CHLORIDE LEVEL 112 MMOL/L (98-107); CREATININE FOR GFR 1.08 MG/DL (0.70-1.30); GLOMERULAR FILTRATION RATE > 60.0 (>49); GLUCOSE, FASTING 86 MG/DL (74-106); POTASSIUM SERUM 3.2 MMOL/L (3.5-5.1); SODIUM LEVEL 143 MMOL/L (136-145); TOTAL PROTEIN 5.8 G/DL (5.7-8.2)
[2022-12-15 20:22] LABS: CPK CREATINE PHOSPHOKINASE 212 U/L (46-171)
[2022-12-15] MEDS ORDERED: KETOROLAC 30 MG/ML 1ML VIAL IV ONE (20:25)
[2022-12-15] MEDS: GASTROGRAFIN SOLUTION 30ML PO SCH ×2 (21:24→22:15)
[2022-12-15] MEDS ORDERED: ISOVUE-370 76% 100ML VIAL As Ordered ONE (22:49)
[2022-12-16] MEDS ORDERED: GABAPENTIN 300 MG CAP PO ONE (01:10)
[2022-12-16] MEDS ORDERED: NEUR300C PO (01:13)
[2022-12-16 01:35] VITALS: BP 165/90
[2022-12-17] MEDS ORDERED: ALIG4CAP PO (12:14)
[2022-12-17] MEDS ORDERED: [UNRECOGNIZED DRUG - OTHER] PO (12:14)
[2022-12-19] MEDS ORDERED: NEUR300C PO (08:38)
== END 2022-12-16 01:38 | disposition home or self-care (01) ==
LOC: M ED 18:33
DX: R19.00 Intra-abdominal and pelvic swelling, mass and lump, unspecified site (principal); R10.9 Unspecified abdominal pain; Z79.899 Other long term (current) drug therapy
CPT/HCPCS: 74177; 76705; 80048; 80076; 81001; 82550; 82553; 83605; 83690; 84484; 85025; 93005; 93041; 96374; 99285; J1885; Q9963; Q9967

== ENCOUNTER → 2023-01-01 | Outpatient (CLI) | payer BC ==
[~2023-01-01] VITALS: Ht 182.9 cm; Wt 68.4 kg
[~2023-01-01] MED LIST changes: +ALIG4CAP PO; +GABA-282 PO; +HYDR-3713 PO; +LOPE-39 PO; +LOVE1INJ SC; +META0.52 PO; +NEUR300C PO; +NORT10CA2 PO; +ONDA4TAB6 PO; +SUCR1TAB56; +[UNRECOGNIZED DRUG - OTHER] PO
[2023-01-01 14:41] VITALS: BP 134/85; TEMP 97.1; O2SAT 99
== END ==
LOC: M PAL 12:36
PROVIDERS: ATTEND Nurse Practitioner Adult Health
DX: C25.8 Malignant neoplasm of overlapping sites of pancreas (principal); Z51.5 Encounter for palliative care; R10.9 Unspecified abdominal pain; G89.3 Neoplasm related pain (acute) (chronic); Z79.899 Other long term (current) drug therapy; R19.7 Diarrhea, unspecified

== ENCOUNTER → 2023-01-01 | Outpatient (CLI) | payer BC ==
[~2023-01-01] MED LIST changes: -GABA-282 PO; -LOPE-39 PO; -LOVE1INJ SC; -META0.52 PO; +NORT10CA2; -NORT10CA2 PO; -ONDA4TAB6 PO
== END ==
LOC: M ONCR 12:37
PROVIDERS: ATTEND General Practice
DX: C25.8 Malignant neoplasm of overlapping sites of pancreas (principal); E78.5 Hyperlipidemia, unspecified; Z71.2 Person consulting for explanation of examination or test findings; Z79.899 Other long term (current) drug therapy; Z84.1 Family history of disorders of kidney and ureter

== ENCOUNTER → 2023-01-05 | Outpatient (CLI) | payer BC ==
[~2023-01-05] MED LIST changes: -NORT10CA2; +NORT10CA2 PO
== END ==
LOC: M PLARAD 14:55
PROVIDERS: ATTEND Internal Medicine Hematology & Oncology
DX: R93.5 Abnormal findings on diagnostic imaging of other abdominal regions, including retroperitoneum (principal)
CPT/HCPCS: 78815; A9552

== ENCOUNTER 2023-01-13 13:37 | Outpatient (RCR) | payer BC | END 2023-01-16 | LOC: M ONCR 13:37 | PROVIDERS: ATTEND General Practice | DX: C25.8 Malignant neoplasm of overlapping sites of pancreas (principal) ==

== ENCOUNTER → 2023-01-14 | Outpatient (CLI) | payer BC ==
[~2023-01-14] MED LIST changes: +ISOVUE-370 76% 100ML VIAL ONE; +ONDA4TAB6 PO
== END ==
LOC: M PLAIMG 11:06
PROVIDERS: ATTEND Internal Medicine Hematology & Oncology
DX: C25.9 Malignant neoplasm of pancreas, unspecified (principal)

== ENCOUNTER 2023-01-30 07:55 | Outpatient (RCR) | payer BC ==
[~2023-01-30 07:55] MED LIST changes: -AMIT25TA17; +AMIT25TA19; -ISOVUE-370 76% 100ML VIAL ONE
[2023-01-30] MEDS ORDERED: HYDR-3713 PO (13:00)
[2023-01-30] MEDS ORDERED: NEUR300C PO (13:00)
[2023-02-06] MEDS ORDERED: LOVE1INJ SC (13:03)
[2023-02-06] MEDS ORDERED: META0.52 PO (13:26)
[2023-02-06] MEDS ORDERED: LOPE-39 PO (13:26)
[2023-02-06] MEDS ORDERED: HYDR-3713 PO (13:26)
[2023-02-06] MEDS ORDERED: GABA-282 PO (13:26)
== END 2023-02-16 ==
LOC: M ONCR 07:55
PROVIDERS: ATTEND General Practice
DX: C25.8 Malignant neoplasm of overlapping sites of pancreas (principal)

== ENCOUNTER 2023-02-06 12:45 | Emergency (ER) | payer BC ==
[~2023-02-06] VITALS: Ht 182.9 cm; Wt 65.9 kg
[~2023-02-06 12:45] MED LIST changes: +AMIT25TA17; -AMIT25TA19
[2023-02-06] MEDS ORDERED: LOVE1INJ SC (13:03)
[2023-02-06] MEDS ORDERED: HYDR-3713 PO (13:26)
[2023-02-06] MEDS ORDERED: META0.52 PO (13:26)
[2023-02-06] MEDS ORDERED: GABA-282 PO (13:26)
[2023-02-06] MEDS ORDERED: LOPE-39 PO (13:26)
[2023-02-06] MEDS ORDERED: NS 1,000 ML IV SCH (15:25)
[2023-02-06] MEDS ORDERED: ONDANSETRON 4MG 2ML VIAL IV ONE (16:15)
[2023-02-06] MEDS: fentaNYL 100 MCG/2 ML INJECTION IV PRN ×4 (16:26→21:09)
[2023-02-06] MEDS: GASTROGRAFIN SOLUTION 30ML PO SCH ×2 (16:27→16:36)
[2023-02-06 16:30] LABS: HEMATOCRIT 36.6 % (42.0-52.0); HEMOGLOBIN 12.4 g/dl (13.5-17.5); MEAN CORPUSCULAR HEMOGLOBIN 31.6 pg (27.0-33.0); MEAN CORPUSCULAR HGB CONC 33.9 g/dl (32.0-36.5); MEAN CORPUSCULAR VOLUME 93.4 fl (80.0-96.0); PLATELET COUNT, AUTOMATED 138 10^3/uL (150-450); RED BLOOD COUNT 3.92 10^6/uL (4.30-6.10)
[2023-02-06 16:37] LABS: CREATININE FOR GFR 1.32 MG/DL (0.70-1.30); GLOMERULAR FILTRATION RATE 58.9 (>49); POTASSIUM SERUM 4.8 MMOL/L (3.5-5.1)
[2023-02-06 17:15] LABS: ATYPICAL LYMPH 2 % (0-5); BASOPHILS 1 % (0-1); LYMPHOCYTES 5 % (16-44); METAMYELOCYTES 2 % (0-0); MONOCYTES 12 % (0-5); NEUTROPHILS 38 % (28-66)
[2023-02-06 17:16] LABS: PLATELET ESTIMATE DECREASED (NORMAL)
[2023-02-06 17:19] LABS: HYPERSEGMENTED POLYS 1+
[2023-02-06] MEDS ORDERED: PIPERACILLIN/TAZOBACTAM SOD 4.5 GM in D5W MINI-BAG PLUS 50 ML IV ONE (17:25)
[2023-02-06] MEDS ORDERED: ISOVUE-370 76% 100ML VIAL As Ordered ONE (17:27)
[2023-02-06] MEDS ORDERED: NS 1,980 ML in IV 1 EA IV ONE (18:35)
[2023-02-06 19:06] LABS: ABG BASE EXCESS -10.2 (-2.0-2.0); ABG HCO3 12.6 MMOL/L (22.0-26.0); ABG O2 SATURATION 98.5 % (95.0-99.0); ABG PARTIAL PRESSURE CO2 21.2 mmHg (35.0-45.0); ABG PARTIAL PRESSURE O2 116.3 mmHg (75.0-100.0); ABG STANDARD HCO3 16.4 MMOL/L. (22.0-26.0); ABG TOTAL CO2 13.3 MMOL/L (23.0-31.0); ABG pH (ARTERIAL) 7.393 UNITS (7.350-7.450)
[2023-02-06 19:14] LABS: C REACTIVE PROTEIN QUANTITATIV 24.2 MG/DL (<1.0)
[2023-02-06 19:16] LABS: ALBUMIN 3.4 G/DL (3.2-5.2); BILIRUBIN,DIRECT 0.8 MG/DL (<0.4); BILIRUBIN,TOTAL 1.7 MG/DL (0.3-1.2); TOTAL PROTEIN 6.5 G/DL (5.7-8.2)
[2023-02-06] MEDS ORDERED: SODIUM CHLORIDE 0.9% INJ 10 ML SYR IV PRN (19:25)
[2023-02-06 19:27] LABS: PROCALCITONIN 15.37 ng/ml
[2023-02-06 20:25] LABS: INR 1.72; PROTHROMBIN TIME 20.5 SECONDS (12.5-14.5)
[2023-02-06 20:26] LABS: PARTIAL THROMBOPLASTIN TIME 33.1 SECONDS (24.8-34.2)
[2023-02-06] MEDS ORDERED: MORPHINE 4 MG/ML 1ML VIAL IV PRN (21:50)
[2023-02-06 22:16] VITALS: BP 115/79; TEMP 98.1; O2SAT 99
== END 2023-02-06 22:36 | disposition short-term general hospital (02) ==
LOC: M ED 12:45
DX: K81.0 Acute cholecystitis (principal); K56.609 Unspecified intestinal obstruction, unspecified as to partial versus complete obstruction; C25.9 Malignant neoplasm of pancreas, unspecified; Z79.899 Other long term (current) drug therapy
CPT/HCPCS: 36600; 74021; 74177; 80048; 80076; 82150; 82803; 83605; 84145; 85025; 85610; 85730; 86140; 87040; 87635; 96365; 96366; 96367; 96375; 99284; J2405; J2543; J3010; Q9963; Q9967